=== PATIENT | male | born 1955 | race Caucasian/White ===

== ENCOUNTER → 2018-10-07 12:48 | Oncology outpatient (ONC) | payer OTHER, SELFPAY ==
[2018-10-07 13:09] VITALS: BP 140/80; PULSE 69; RESP 16; TEMP 36.9; O2SAT 95
--- NOTE | 2018-10-07 13:30 | ONC.PN ---
PN -Subjective Interval history: Diagnosis: Monoclonal B-cell lymphocytosis Previous treatment: None Interval history: Patient is a 63-year-old man who returns today for follow-up. He was noted to have an elevated white count at the time of an evaluation for coronary artery disease. He had a bone marrow biopsy done that showed a monoclonal B-cell population consistent with CLL. He had a CT scan done that showed some mild adenopathy. He was diagnosed with probable CLL. He has been followed expectantly since then. In 2016. His white count was 8.1 hemoglobin 15.9 and platelets [id number]. His most recent CBC from September 19 showed a white count of 7.9 hemoglobin 15.7 and platelets of 169,000. Absolute lymphocyte count was 2.3. The patient has not noted any new adenopathy. He denies any new aches or pains. No fevers chills or sweats. Appetite and energy level have been stable. He denies any other changes in his health. He is currently on no prescription medications but does take several supplements and vitamins. Home Medications and Allergies Home Medications Medication Instructions Recorded Confirmed Type aspirin 81 mg PO DAILY 10/07/18 10/07/18 History coenzyme Q10 [Co Q-10] 100 mg PO DAILY 10/07/18 10/07/18 History loratadine 10 mg PO DAILY 10/07/18 10/07/18 History multivitamin 1 cap PO DAILY 10/07/18 10/07/18 History omega-3 fatty acids 1,000 mg PO DAILY 10/07/18 10/07/18 History vitamin K2 100 mcg PO DAILY 10/07/18 10/07/18 History Exam - Constitutional positive no acute distress, positive average body habitus - Routine HEENT Exam Head: Present: normocephalic, atraumatic Eye: Present: EOMI, PERRL. Absent: conjunctival icterus, scleral injection ENT: Present: mucous membranes moist, oropharynx clear - Routine Neck Exam Present: supple. Absent: lymphadenopathy, thyromegaly - Routine Chest/Breast/Axilla Exam Axillae: Absent: lymphadenopathy - Routine Respiratory Exam Present: Clear to auscultation bilaterally. Absent: rales, wheezes - Routine Cardiovascular Exam Present: RRR, S1, S2. Absent: murmur - Routine Abdominal Exam Present: soft, normoactive bowel sounds. Absent: tenderness, organomegaly, mass - Routine Extremities Exam Absent: cyanosis, clubbing, edema - Routine Skin Exam Present: intact. Absent: petechiae, rash - Routine Neurological Exam Present: alert, oriented X3 - Routine Psychiatric Exam Present: normal affect, normal thought process Results - Imaging Additional studies: Procedures Endoscopic polypectomy of large intestine (06/01/15) Assessment and Plan (1) Monoclonal B-cell lymphocytosis of undetermined significance Status: Acute 63-year-old man with a history of a mild elevation in his lymphocyte count. Flow cytometry has shown a monoclonal B-cell population but he has no evidence of progression. There are no symptoms related to this. He is not require any therapy. He should be monitored with a CBC annually. He prefers to do this with his primary physician and I think that is reasonable. I have not scheduled a follow-up appointment for him but would be happy to see him again in the future should his counts change or should he develop any new symptoms.
== END ==
LOC: ONC 12:52
DX: D72.820 Lymphocytosis (symptomatic) (principal)
CPT/HCPCS: 99214

== ENCOUNTER 2019-08-08 09:10 | Emergency (ER) | payer OTHER, SELFPAY ==
[2019-08-08 09:10] VITALS: BP 165/89; PULSE 55; RESP 16; TEMP 36.2; O2SAT 100
--- NOTE | 2019-08-08 09:29 | DI.CT.S_ITS ---
PROCEDURE: CT HEAD/BRAIN WO CON INDICATIONS: dizzy nausea TECHNIQUE: Noncontrast 4.5 mm thick angled axial sections acquired from the foramen magnum to the vertex, with coronal and sagittal reformats. For radiation dose reduction, the following was used: automated exposure control, adjustment of mA and/or kV according to patient size. COMPARISON: [facility], CR, XR CHEST 1V, 08/08/2019, 9:27. FINDINGS: Image quality: Excellent. CSF spaces: Basal cisterns are patent. No extra-axial fluid collections. Asymmetry is noted of the ventricles, which is attributed to developmental asymmetry. Brain: No intracranial bleeds or masses. There is cerebral volume loss for age, with resultant ventricular and sulcal prominence. There are periventricular and deep white matter chronic small vessel ischemic changes. There is intracranial internal carotid artery atherosclerosis. Skull and face: Calvarium and visualized facial bones appear intact, without suspicious lesions. Sinuses: Visualized sinuses and mastoids are clear. IMPRESSION: No acute intracranial process is seen. Dictated by: Raghu Paez M.D. on 08/08/2019 at 9:23 Approved by: Raghu Paez M.D. on 08/08/2019 at 9:24
--- NOTE | 2019-08-08 09:31 | ED_ITS ---
HPI - Dizziness General Chief Complaint: Dizziness Stated Complaint: dizzy and throwing up Time Seen by Provider: 08/08/19 09:17 Source: patient Mode of arrival: Ambulatory Limitations: no limitations History of Present Illness HPI Narrative: Patient is a 64-year-old male with history of coronary artery disease and vertigo who presents with dizziness and nausea. He states that he got up to do ti chi, he also was going to walk the dog. He walked down the end of the driveway got extremely dizzy lightheaded and nauseous. Likely for his walking stick he did not fall down he made it back to his who thought he may be having heart attack and gave him nitroglycerin. He states that the dizziness has resolved however he continues to feel extremely nauseous. He states that he has diffuse fatigue all over his body is but no pain. He denies any chest pain shortness of breath heart palpitations or focal deficits. He has no blackening of vision or double vision. MD complaint: dizziness Timing: sudden onset Relieving factors: nothing Exacerbating factors: nothing Related Data Home Medications Medication Instructions Recorded Confirmed aspirin 81 mg PO DAILY 10/07/18 10/07/18 coenzyme Q10 [Co Q-10] 100 mg PO DAILY 10/07/18 10/07/18 loratadine 10 mg PO DAILY 10/07/18 10/07/18 multivitamin 1 cap PO DAILY 10/07/18 10/07/18 omega-3 fatty acids 1,000 mg PO DAILY 10/07/18 10/07/18 vitamin K2 100 mcg PO DAILY 10/07/18 10/07/18 Allergies Allergy/AdvReac Type Severity Reaction Status Date / Time No Known Drug Allergies Allergy Verified 08/08/19 09:30 Review of Systems Review of Systems ROS Unobtainable: All systems reviewed & are unremarkable except as noted in HPI and below Constitutional Constitutional: Denies chills, Denies fever(s), Denies lethargy and Denies weakness Eyes Eyes: Denies change in vision, Denies eye discharge, Denies irritation and Denies loss of vision ENT Ears, Nose, Mouth, and Throat: Denies change in voice, Denies neck pain and Denies sore throat Cardiovascular Cardiovascular: Reports as per HPI, Denies chest pain, Reports lightheadedness, Denies dyspnea and Denies dyspnea on exertion Respiratory Respiratory: Denies cough, Denies dyspnea, Denies dyspnea on exertion and Denies wheezing Gastrointestinal Gastrointestinal: Reports nausea and Reports vomiting (x1) Genitourinary Genitourinary: Denies hematuria, Denies flank pain, Denies urinary incontinence and Denies urinary urgency Musculoskeletal Musculoskeletal: Denies neck pain Integumentary/Breasts Skin/Breast: Denies pruritus, Denies erythema, Denies rash and Denies wounds Neurologic Neurologic: Denies loss of vision and Denies weakness Allergic/Immunologic Allergic/Immunologic: Denies wheezing Patient History Medical History Coronary artery disease (Acute) Monoclonal B-cell lymphocytosis of undetermined significance (Acute) Vertigo (Acute) Social History Smoking Status: Never smoker alcohol intake frequency: a few times a week Alcohol type: wine Substance Use Type: does not use Exam Initial Vital Signs Initial Vital Signs: Vital Signs Temperature 97.1 F L 08/08/19 09:10 Pulse Rate 55 L 08/08/19 09:10 Respiratory Rate 16 08/08/19 09:10 Blood Pressure 165/89 H 08/08/19 09:10 Pulse Oximetry 100 08/08/19 09:10 GENERAL: Middle-aged male appears unwell HEENT: Head atraumatic,EOMI, pupils reactive, face symmetric, CARDIOVASCULAR: Regular rate and rhythm without murmurs, rubs or gallops. RESPIRATORY: Breath sounds equal bilaterally, no wheezes rales or rhonchi. ABDOMEN: Soft, nontender. Normoactive bowel sounds all 4 quadrants. No guarding or rebound. EXTREMITIES: Normal range of motion, no clubbing or edema. Neurovascularly intact NEUROLOGICAL: Alert and oriented x4.Normal gait and speech. Cranial nerves II through XII grossly intact. Good [id number], good [id number], strength equal bilaterally, no dysarthria or aphasia, sensation in tact to soft touch bilaterally, no visual changes, no facial droop SKIN: Warm, dry, no laceration, no petechiae, no rashes or lesions. Scores NIH Stroke Scale Level of Conciousness: Alert, keenly responsive Ask month/age: Answers both questions correctly. Open/close eyes, close hand: Performs both tasks correctly Best gaze horizontal: Normal Visual rodriguez: No visual loss Facial palsy: Normal symetrical movement Left arm drift: No drift for full 10 sec Right arm drift: No drift for full 10 sec Left leg drift: No drift for full 10 sec Right leg drift: No drift for full 10 sec Limb ataxia: Absent Sensory on face/arms/legs: Normal, no sensory loss Best language: No aphasia, normal Dysarthria: Normal Extinction or inattention: No abnormality Total NIH Stroke scale score: 0 Course Orders Ordered: ED Orders 08/08/19 09:22 Complete Blood Count AUTO DIFF Stat Comprehensive Metabolic Panel Stat Lipase Stat Troponin & CK Cardiac Panel Stat 08/08/19 09:29 CT head/brain wo con Stat XR chest 1V Stat EKG-12 Lead Stat Discontinued Medications Sodium Chloride (Normal Saline 0.9%) 1,000 mls @ 1,000 mls/hr IV CONT DESTINEY Last Infusion: 08/08/19 09:39 Dose: 0 mls/hr Documented by: Admin: 08/08/19 09:35 Dose: 1,000 mls/hr Documented by: SHAILESH Ondansetron HCl (Zofran) 4 mg IV NOW ONE Stop: 08/08/19 09:30 Last Admin: 08/08/19 09:35 Dose: 4 mg Documented by: SHAILESH Ondansetron HCl (Zofran) 4 mg IV NOW ONE Stop: 08/08/19 10:14 Last Admin: 08/08/19 10:16 Dose: 4 mg Documented by: SHAILESH Pantoprazole Sodium (Protonix) 40 mg IV NOW ONE Stop: 08/08/19 10:14 Last Admin: 08/08/19 10:17 Dose: 40 mg Documented by: SHAILESH Vital Signs Vital signs: Vital Signs - 8 hr 08/08/19 09:10 08/08/19 09:49 08/08/19 09:57 Temperature 97.1 F L Pulse Rate 55 L 46 L 41 L Respiratory Rate 16 13 Blood Pressure 165/89 H Blood Pressure [Right Arm] 150/77 H 150/77 H Pulse Oximetry 100 98 08/08/19 10:11 08/08/19 11:06 Temperature Pulse Rate 44 L 50 L Respiratory Rate 10 L 11 L Blood Pressure Blood Pressure [Right Arm] 143/74 H 142/77 H Pulse Oximetry 100 97 MDM - Dizziness Lab Data Attestation: I reviewed the patient's lab results. Result diagrams: 08/08/19 09:22 08/08/19 09:22 Labs: Lab Results 08/08/19 08/08/19 Range/Units 09:22 09:22 WBC 8.4 (4.5-11.0) X10^3/uL RBC 5.35 (4.5-5.9) X10^6/uL Hgb 16.8 (13.5-17.5) g/dL Hct 50.0 (41-53) % MCV 93.5 (80-100) fL MCH 31.5 (26-34) PG MCHC 33.7 (30-36) % RDW 12.8 (11.6-14.8) % Plt Count 166 (150-400) X10^3/uL Neut % (Auto) 54.6 (50-75) % Lymph % (Auto) 33.6 (25-40) % [place] % (Auto) 8.2 (3-14) % Eos % (Auto) 3.2 (2-4) % Baso % (Auto) 0.4 (0-2) % Neut # (Auto) 4600 (5481-2609) /uL Lymph # (Auto) 2800 (6638-4321) /uL [place] # (Auto) 700 (0-900) /uL Eos # (Auto) 300 (0-450) /uL Baso # (Auto) 0 (0-100) /uL Sodium 141 (137-145) mmol/L Potassium 4.2 (3.4-5.1) mmol/L Chloride 105 (98-107) mmol/L Carbon Dioxide 28 (22-32) mmol/L BUN 28 H (9-20) mg/dL Creatinine 1.00 (0.66-1.25) mg/dL Estimated GFR > 60.0 (>60) mL/min BUN/Creatinine Ratio 28.0 H (6-22) Glucose 125 H (80-110) mg/dL Calcium 9.5 (8.4-10.2) mg/dL Total Bilirubin 0.8 (0.2-1.3) mg/dL AST 39 (17-59) IU/L ALT 23 (<50) IU/L Alkaline Phosphatase 66 (38-126) U/L Total Creatine Kinase 69 (55-170) U/L CK-MB (CK-2) TNP CK-MB (CK-2) Rel Index TNP Troponin I < 0.012 (0.01-0.034) ng/mL Total Protein 7.1 (6.3-8.2) g/dL Albumin 4.6 (3.5-5.0) g/dL Globulin 2.5 (1.7-4.1) g/dL Albumin/Globulin Ratio 1.8 (1.0-2.8) Lipase 156 (23-300) U/L Point of Care Testing Glucose POC 107 Imaging Data Chest x-ray: Radiologist's impression: PROCEDURE: XR CHEST 1V INDICATIONS: nausea dizzy TECHNIQUE: One view of the chest was acquired. COMPARISON: [facility], CT, CT HEAD/BRAIN WO CON, 08/08/2019, 9:36. [facility], CR, CHEST 1 VIEW, 08/02/2015, 8:03. FINDINGS: Surgical changes and devices: None. Lungs and pleura: An incomplete inspiratory result is noted, causing a crowded appearance to the lung markings. No focal infiltrates are seen. No pneumothorax or significant pleural effusions are seen. Mediastinum: The cardiac contours are within normal limits. The aorta demonstrates calcification and tortuosity. Bones and chest wall: Age-appropriate bony degenerative changes are seen. No suspicious bony lesions. Remote right rib fractures are seen. Overlying soft tissues appear unremarkable. IMPRESSION: Limited portable chest examination, without a significant cardiopulmonary abnormality identified. Remote right rib fractures. Dictated by: Raghu Paez M.D. on 08/08/2019 at 9:21 ECG Data Attestation: I personally reviewed and interpreted this ECG as follows: Prior ECG tracings: available for review Interpretation: Normal sinus rhythm rate 51 p.r. interval 167 QRS [address] changes or T-wave inversions MDM Narrative Medical decision making narrative: Patient has no focal deficits. He denies any dizziness in the emergency department just weakness and nausea. After 2 doses of Zofran and Protonix he is overall feeling much better and would like to go home. Head CT blood work an EKG are overall reassuring. Discharge Plan Departure Patient Disposition: Home Clinical Impression: Vertigo Discharge Date/Time: 08/08/19 11:27 Instructions: DI for Vertigo Activity Restrictions/Additional Instructions: *You have been diagnosed with vertigo *What to do: You likely had an episode of vertigo today causing your dizziness lightheadedness and nausea. Head CT blood work overall reassuring. Recommend increasing her fluid intake today *Continue to take medications as directed *Follow up with your primary care provider in 2-3 days *Return to ER if you should have worsening dizziness, weakness, difficulty speaking or any new, worsening or concerning symptoms Prescriptions: No Action omega-3 fatty acids 1,000 mg Capsule 1,000 mg PO DAILY RF: 0 aspirin 81 mg Tablet,Chewable 81 mg PO DAILY RF: 0 multivitamin Capsule 1 cap PO DAILY RF: 0 coenzyme Q10 [Co Q-10] 100 mg Capsule 100 mg PO DAILY RF: 0 loratadine 10 mg Capsule 10 mg PO DAILY RF: 0 vitamin K2 40 mcg Tablet 100 mcg PO DAILY RF: 0 Referrals: [facility] [Provider Group] Alexis Rodriguez MD [Primary Care Provider] -
[2019-08-08] MEDS: SODIUM CHLORIDE 0.9% 1,000 ML 1000 ML IV (09:35)
[2019-08-08] MEDS: ONDANSETRON 4 MG/2 ML INJ IV ×2 (09:35→10:16)
[2019-08-08 09:36] LABS: Add Manual Diff / Slide Review NO; Basophils Absolute Auto 0 /uL (0-100); Basophils Percent Auto 0.4 % (0-2); Eosinophils Absolute Auto 300 /uL (0-450); Eosinophils Percent Auto 3.2 % (2-4); Hemoglobin 16.8 g/dL (13.5-17.5); Lymphocytes Absolute Auto 2800 /uL (1100-4500); Lymphocytes Percent Auto 33.6 % (25-40); Mean Corpuscular HGB Conc 33.7 % (30-36); Mean Corpuscular Hemoglobin 31.5 PG (26-34); Mean Corpuscular Volume 93.5 fL (80-100); Monocytes Absolute Auto 700 /uL (0-900); Monocytes Percent Auto 8.2 % (3-14); Neutrophils Absolute Auto 4600 /uL (1500-7000); Neutrophils Percent Auto 54.6 % (50-75); Platelet Count 166 X10^3/uL (150-400); Red Blood Cell Count 5.35 X10^6/uL (4.5-5.9); Red Cell Distribution Width 12.8 % (11.6-14.8); White Blood Cell Count 8.4 X10^3/uL (4.5-11.0)
--- NOTE | 2019-08-08 09:39 | PC.NURSE ---
fluids paused at request of csr technician for imaging
[2019-08-08 09:48] LABS: Alanine Aminotransferase 23 IU/L (<50); Albumin 4.6 g/dL (3.5-5.0); Albumin Globulin Ratio 1.8 (1.0-2.8); Alkaline Phosphatase 66 U/L (38-126); Aspartate Aminotransferase 39 IU/L (17-59); Bilirubin Total 0.8 mg/dL (0.2-1.3); Blood Urea Nitrogen 28 mg/dL (9-20); Calcium 9.5 mg/dL (8.4-10.2); Carbon Dioxide 28 mmol/L (22-32); Chloride 105 mmol/L (98-107); Creatine Kinase 69 U/L (55-170); Estimated Glomerular Filt Rate > 60.0 mL/min (>60); Globulin 2.5 g/dL (1.7-4.1); Glucose 125 mg/dL (80-110); HEMOLYSIS 18 (0-50); Lipase 156 U/L (23-300); Potassium 4.2 mmol/L (3.4-5.1); Sodium 141 mmol/L (137-145); Total Protein 7.1 g/dL (6.3-8.2)
[2019-08-08 09:49] VITALS: BP 150/77; PULSE 46; RESP 13; O2SAT 98
[2019-08-08 09:57] VITALS: BP 150/77; PULSE 41
--- NOTE | 2019-08-08 09:57 | PC.NURSE ---
Dr Moran aware of pt's heart rate dipping to 41, pt states that 50 is his usual lower end HR
[2019-08-08 10:00] LABS: Troponin I < 0.012 ng/mL (0.01-0.034)
[2019-08-08 10:11] VITALS: BP 143/74; PULSE 44; RESP 10; O2SAT 100
--- NOTE | 2019-08-08 10:12 | PC.NURSE ---
Dr Moran aware of pt's HR 44 at this time, pt's nausea starting to increase again
[2019-08-08] MEDS: PANTOPRAZOLE 40 MG VIAL IV (10:17)
[2019-08-08 11:06] VITALS: BP 142/77; PULSE 50; RESP 11; O2SAT 97
== END 2019-08-08 11:27 | disposition home or self-care (01) ==
PROVIDERS: Emergency Provider Emergency Medicine
DX: R42 Dizziness and giddiness (principal); I25.10 Atherosclerotic heart disease of native coronary artery without angina pectoris
CPT/HCPCS: 36415; 70450; 71045; 80053; 82550; 82962; 83690; 84484; 85025; 93005; 93041; 96374; 96375; 96376; 99283; 99285; C9113; J2405

== ENCOUNTER 2019-09-08 12:39 | Outpatient (RCR) | payer OTHER, SELFPAY ==
--- NOTE | 2019-09-08 15:07 | PT-OP ANOTE ---
Pt emails PT to ask about his leg problem and about possible PAD and need for Lasix. PT emails back and writes, good thought and good question for your doctor. PT recommends that pt should follow-up with doctor.
--- NOTE | 2019-09-08 17:48 | PT.OIE ---
Current Diagnoses Dizziness and giddiness (09/08/19) Past Medical History (Last Reviewed 08/08/19 @ 09:35 by Charissa Moran DO) Coronary artery disease (Acute) Monoclonal B-cell lymphocytosis of undetermined significance (Acute) Vertigo (Acute) Visit Care Team Role Provider Type Shonda Forrester DO Attending Provider Non-Staff Primary Care Provider Specialty: Medical Address: [address] [place] [address], [facility] Email: Physical Therapy Initial Evaluation PT-OP-A Visit Information Start: 09/08/19 11:37 Freq: Status: Active Protocol: Document 09/08/19 12:45 MB (Rec: 09/08/19 13:27 MB [id number]) Out-Patient Physical Therapy Visit Information Visit Information Visit Type Initial Evaluation Visit Note Pt has Visit Start Time 12:45 Visit Stop Time 13:25 Total Visit Minutes 40 Visit Number 1 Evaluation Information Evaluation Date 09/08/19 PT-OP-B Current Condition Start: 09/08/19 11:37 Freq: Status: Active Protocol: Document 09/08/19 12:45 MB (Rec: 09/08/19 13:27 MB [id number]) Current Condition History of Current Condition Onset Date 08/08/19 Current Complaints See subjective History of Current Condition Pt presented with dizziness and light-headedness when walking down the driveway. He went to ED and CT head was negative. PMH includes B-cell lymphomcytosis (pt states that he does not know what this is and that he does not have it but chart has it included) and CAD. 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 His blood count altered later in life and he was deemed CA-free once moving here. He only had the one episode of dizziness but has a history of flight motion sickness. He was in the [employer] for thirty years. His balance is fine. He denies falls. Pt states that he inherited his inner ear issues from his father. He states that he has decreased inner ear fluid. He rides his outside bike everyday and plays racquet ball. PT-OP-C Subjective Start: 09/08/19 11:37 Freq: Status: Active Protocol: Document 09/08/19 12:45 MB (Rec: 09/08/19 13:27 MB [id number]) OP-PT Subjective Patient Comments Patient Comments Pt reports trouble with his leg strength and rapid leg mobility with racquet ball. He denies further dizziness. He might have degnerative changes in his legs. He does not want PT at this time for agility, balance or strengthening. Patient Questionnaires ABC- Activity Specific Balance Confidence Scale ABC Functional Impairment 0% Impaired (Score 100) Dizziness Handicap Inventory DHI Functional Impairment 0% Impaired (Score 0) OP-PT Pain Assessment Comments Pain Comments Pt denies pain PT-OP-J Posture/Palpation/Skin Start: 09/08/19 11:37 Freq: Status: Active Protocol: Document 09/08/19 12:45 MB (Rec: 09/08/19 17:47 MB [id number]) Posture Evaluation Comments Posture Comments Forward head, rounded shoulders with head 6 forward and tragus 3 forward of AC joint, B hip and knee flexion, flexion at hips as well, knee and ankle anomalies, possible degnerative in nature. PT-OP-K Range of Motion Start: 09/08/19 11:37 Freq: Status: Active Protocol: Document 09/08/19 12:45 MB (Rec: 09/08/19 17:47 MB [id number]) Cervical Spine Range of Motion Cervical Spine Active Testing Position Standing Flexion 40 Extension 30 Rotation Left 40 Rotation Right 40 Lateral Flexion Left 10 Lateral Flexion Right 10 Comments Pt must extend upper trunk to extend cervical spine PT-OP-M Strength Start: 09/08/19 11:37 Freq: Status: Active Protocol: Document 09/08/19 12:45 MB (Rec: 09/08/19 17:47 MB [id number]) Shoulder Strength Shoulder Manual Muscle Testing Right Flexion 5 Normal Comments All movement functional and WNLs Left Flexion 5 Normal Comments All movement functional and WNLs Elbow/Forearm Strength Elbow and Forearm Manual Muscle Testing Left Flexion (C6) 5 Normal Extension (C7) 5 Normal Comments All movement WNLs Right Flexion (C6) 5 Normal Extension (C7) 5 Normal Comments All movements WNLs Hip Strength Hip Manual Muscle Testing Left Flexion (L2) 3- Fair- Comments Sitting Right Flexion (L2) 4 Good Comments Sitting Knee Strength Knee Manual Muscle Testing Left Flexion (S2) 5 Normal Extension (L3) 5 Normal Comments Sitting Right Flexion (S2) 5 Normal Extension (L3) 5 Normal Comments Sitting Ankle/Foot Strength Ankle and Foot Manual Muscle Testing Left Dorsiflexion (L4) 5 Normal Right Dorsiflexion (L4) 5 Normal PT-OP-O Vestibular Start: 09/08/19 11:37 Freq: Status: Active Protocol: Document 09/08/19 12:45 MB (Rec: 09/08/19 17:47 MB [id number]) Vestibular Assessment Visual Testing Smooth Pursuits Horizontal Normal Smooth Pursuits Vertical Normal Saccades Horizontal Normal Gaze Evoked Nystagmus With Fixation Negative Gaze Evoked Nystagmus Without Fixation Negative Thrust Head Positive Left Convergence Test WNL Spontaneous Nystagmus Negative Positional Testing Supine to Sit Negative Sit to Supine Negative Vestibular Function Tests CTSIB Position 1 Normal mCTSIB Position 1 Normal mCTSIB Position 2 Normal mCTSIB Position 3 Normal mCTSIB Position 4 Normal Comments Vestibular Comments Pt's pupils do not restrict to pen light in the dark. He denies taking any medications Normal finger to nose B after checked twice. To begin he had mild dysmetria when touching target Pt denies: head and neck pain, history of whiplash or other injury, falls, change in hearing, tinnitus, visual changes. He does report doing sit-ups everyday. BP does drop with testing in LUE with BP & HR: supine 156/ 87, 55; standing 30 sec 145/91 , 66; standing 1' 138/89, 63 PT-OP-T Assessment and Plan Start: 09/08/19 11:37 Freq: Status: Active Protocol: Document 09/08/19 12:45 MB (Rec: 09/08/19 17:47 MB [id number]) Physical Therapy Assessment Evaluation Complexity Number of Personal Factors/Comorbidities 1-2 Number of Body Systems Impaired 1-2 Impairments Other Impairments Pt presents with postural changes and possible degenerative changes in his joints, LE weakness, pupils non-reactive to pen light and positive Head Thrust Assessment Summary Assessment Pt is a 64 y/o male presenting with one episode of dizziness that resolved last month. He presents with normal balance with mCTSIB and Functional Gait Assessment this date, though his overall gait pattern is slow and swaggered. He may present with degenerative changes in his joints. He reports concerns about his legs and agility with playing racquet ball. He presents with left greater than right hip weakness with MMT this date. His pupils do not react to pen light in darkened room, VOR head thrust is positive on the left and his finger to nose is mildly dysmetric. He also presents with postural changes. PT is concerned about the presentation of his pupils and finger to nose in a 64 y/o who denies medication use and reports ability to perform racquet ball several times a weak. Similarly, PT is concerned about leg weakness in a patient who reports biking outside on hills several times a week. Unsure if reports of exercise are accurate. PT would anticipate normal UE coordination and leg strength given pt's age and reported activity level. He reports concerns about his agility but he does not wish to have PT to work on it. Recommend follow-up with doctor if work-up needed for any underlying joint degeneration or central concerns. His BP does drop with moving from supine to stand but he is not light- headed. Physical Therapy Plan Frequency and Duration Duration of Treatment Assessment only Plan of Care Start Date 09/08/19 Plan of Care End Date 09/08/19 Discharge Physical Therapy Discharge Reasons Patient Request
--- NOTE | 2019-09-08 17:48 | PT.OPPOC ---
Physical, Occupational & Speech Therapy At [facility] Current Diagnoses Dizziness and giddiness (09/08/19) Visit Care Team Role Provider Type Shonda Forrester DO Attending Provider Non-Staff Primary Care Provider Specialty: Medical Address: [address] [place] [address], [id number] Email: Plan Of Care PT-OP-T Assessment and Plan Start: 09/08/19 11:37 Freq: Status: Active Protocol: Document 09/08/19 12:45 MB (Rec: 09/08/19 17:47 MB [id number]) Physical Therapy Assessment Evaluation Complexity Number of Personal Factors/Comorbidities 1-2 Number of Body Systems Impaired 1-2 Impairments Other Impairments Pt presents with postural changes and possible degenerative changes in his joints, LE weakness, pupils non-reactive to pen light and positive Head Thrust Assessment Summary Assessment Pt is a 64 y/o male presenting with one episode of dizziness that resolved last month. He presents with normal balance with mCTSIB and Functional Gait Assessment this date, though his overall gait pattern is slow and swaggered. He may present with degenerative changes in his joints. He reports concerns about his legs and agility with playing racquet ball. He presents with left greater than right hip weakness with MMT this date. His pupils do not react to pen light in darkened room, VOR head thrust is positive on the left and his finger to nose is mildly dysmetric. He also presents with postural changes. PT is concerned about the presentation of his pupils and finger to nose in a 64 y/o who denies medication use and reports ability to perform racquet ball several times a weak. Similarly, PT is concerned about leg weakness in a patient who reports biking outside on hills several times a week. Unsure if reports of exercise are accurate. PT would anticipate normal UE coordination and leg strength given pt's age and reported activity level. He reports concerns about his agility but he does not wish to have PT to work on it. Recommend follow-up with doctor if work-up needed for any underlying joint degeneration or central concerns. His BP does drop with moving from supine to stand but he is not light- headed. Physical Therapy Plan Frequency and Duration Duration of Treatment Assessment only Plan of Care Start Date 09/08/19 Plan of Care End Date 09/08/19 Discharge Physical Therapy Discharge Reasons Patient Request Plan of Care Dates Plan of Care Start Date 09/08/19 Plan of Care End Date 09/08/19 Electronically Signed by: Yokasta Zavaleta, PT 09/08/19 [id number] Please Sign and Return: I have reviewed this Plan of Care and certify that the skilled therapy services above are required to meet the patient?s needs. Physician Signature Date Printed Name and Credentials Clinical Instructor Signature Printed Name and Credentials
== END 2019-09-24 10:20 ==
LOC: PHYS 12:39
PROVIDERS: PCP Family Medicine; Visit Provider Family Medicine
DX: R42 Dizziness and giddiness (principal)
CPT/HCPCS: 97162

== ENCOUNTER → 2019-11-10 12:31 | Outpatient (CLI) | payer OTHER, SELFPAY ==
--- NOTE | 2019-11-10 | DI.MRI.S_ITS ---
PROCEDURE: MR HIP RT WO/W CON INDICATIONS: Pain in right hip TECHNIQUE: Noncontrast coronal T1 spin echo and STIR, sagittal T1 spin echo with fat saturation and STIR, axial T1 spin echo and T2 fast spin echo with fat saturation. After the administration of contrast, axial/sagittal/coronal T1 spin echo with fat saturation through the right hip. COMPARISON: [facility], CR, XR PELVIS WITH LATERAL HIP RIGHT, 09/17/2019, 9:12. FINDINGS: Image quality: Degraded by uncontrollable motion artifact, in particular on the post contrast-enhanced pulse sequences Bones: No definite abnormal intraosseous enhancement although limited by motion artifact. No discrete fracture line is seen. There is bilateral hip joint degeneration, right greater left. Scattered degenerative subchondral sclerosis and spurring. Lower lumbar facet arthropathy. The sacroiliac joints appear grossly intact. Subchondral marrow signal change present in the right femoral head presumably reactive to joint degeneration. Small right hip joint effusion is present. The labrum is not well-seen due to motion artifact however suspect anterosuperior labral fraying and degeneration, possibly chronic tear. There is adjacent acetabular sclerosis and spurring. Soft tissues: No soft tissue masses are visualized. The scanned muscles demonstrate normal overall bulk and internal signal. Subcutaneous tissues appear normal as well. No abnormal soft tissue enhancement. No definite pathologic lymphadenopathy. IMPRESSION: No discrete marrow signal abnormality or enhancement to suggest intraosseous mass. Motion degraded examination, in particular on the contrast-enhanced pulse sequences. Bilateral hip joint degeneration, right greater left. Poorly defined right anterosuperior labral fraying/degenerative tear, probably chronic. Trace right hip joint effusion. Dictated by: Gene Morrison M.D. on 11/10/2019 at 13:34 Approved by: Gene Morrison M.D. on 11/10/2019 at 13:42
== END ==
PROVIDERS: PCP Family Medicine; Referring Provider Family Medicine; Visit Provider Orthopaedic Surgery
DX: M25.551 Pain in right hip (principal); M16.0 Bilateral primary osteoarthritis of hip
CPT/HCPCS: 73723; A9579

== ENCOUNTER 2021-02-28 02:58 | Emergency (ER) | payer MEDICARE, OTHER, SELFPAY ==
[2021-02-28 03:20] VITALS: BP 184/91; PULSE 56; RESP 16; TEMP 36.6; O2SAT 97; BMI 27.9
--- NOTE | 2021-02-28 03:35 | DI.CT.S_ITS ---
PROCEDURE: CT KIDNEY URETER BLADDER (KUB) INDICATIONS: severe left flank pain TECHNIQUE: Axial sections were acquired from the lung bases to the pubic symphysis. Coronal and sagittal reformats were performed. For radiation dose reduction, the following was used: automated exposure control, adjustment of mA and/or kV according to patient size. COMPARISON:[facility], CR, XR KUB, 02/28/2021, 5:56. FINDINGS: Image quality: Excellent. Lung bases: Bibasilar atelectasis. Small hiatal hernia. Heart: Heart size is normal. Severe coronary artery calcification. URINARY: Left Kidney: There is a 11 x 8 mm stone at the left ureteropelvic junction. There is moderate left hydronephrosis and perinephric stranding. A small perinephric fluid is present. No other renal calculi. Left Ureter: No hydroureter. Right Kidney: No stones or hydronephrosis. Right Ureter: No hydroureter. Bladder: Normal wall thickness. No stones. Prostate is prominent in size. ABDOMEN: Liver: Unremarkable. Gallbladder: Unremarkable. Biliary ducts: Unremarkable. Pancreas: Unremarkable. Spleen: Unremarkable. Adrenal Glands: Unremarkable. Stomach and Bowel: Stomach, small bowel loops, and colon are unremarkable. Moderate amount of stool in colon. Peritoneum: No abnormal intraperitoneal fluid. No free air. Ventral Wall: There is a tiny fat containing umbilical hernia. Abdominal Nodes: No enlarged retroperitoneal or mesenteric lymph nodes. Vessels: Aorta and inferior vena cava are normal in size. Moderate atherosclerotic calcification. PELVIS: Pelvic Organs: Unremarkable. Pelvic Nodes: Unremarkable. Miscellaneous: No inguinal hernias are seen. Bones: Unremarkable. Mild degenerative changes in lumbar spine. IMPRESSION: 1. There is a 11 x 8 mm obstructive stone at the left UPJ, causing moderate hydronephrosis with perinephric stranding and small perinephric fluid. No significant discrepancy with the shift stacker radiology preliminary report. Dictated by: Edna Bryant M.D. on 02/28/2021 at 7:52 Approved by: Edna Bryant M.D. on 02/28/2021 at 7:58
--- NOTE | 2021-02-28 03:38 | ED.MALEGU ---
HPI - Male Genitourinary General Chief complaint: Urogenital-Male Stated complaint: acute pain left side/hip blood in urine yesterday Time Seen by Provider: 02/28/21 03:08 Source: patient and family Mode of arrival: Ambulatory Limitations: no limitations History of Present Illness HPI Narrative: 66-year-old male nonsmoker with history of coronary artery disease presents with his in the chief complaint of severe left flank pain over the course of the day. He states it seems to be there no matter what and he is largely unable to find a position of comfort. He denies any radiation of the pain and states that it is sharp, stabbing and intense. He denies any fever chills but has had nausea due to the pain. He denies any actual vomiting. He denies any recent injury or overuse. He does state that he passed some blood in his urine yesterday. He denies any history of kidney stones. MD Complaint: other Onset (ago): hour(s) Duration: constant Location: left flank Severity: moderate Quality: aching and burning Relieving factors: none Exacerbating factors: none Associated symptoms: Reports blood in urine Related Data Home Medications Medication Instructions Recorded Confirmed aspirin 81 mg PO DAILY 10/07/18 10/07/18 coenzyme Q10 [Co Q-10] 100 mg PO DAILY 10/07/18 10/07/18 loratadine 10 mg PO DAILY 10/07/18 10/07/18 multivitamin 1 cap PO DAILY 10/07/18 10/07/18 omega-3 fatty acids 1,000 mg PO DAILY 10/07/18 10/07/18 vitamin K2 100 mcg PO DAILY 10/07/18 10/07/18 Previous Rx's Medication Instructions Recorded hydrocodone-acetaminophen 1 tab PO Q4-6H PRN #20 tab 02/28/21 ketorolac 10 mg PO Q6H PRN #14 tab 02/28/21 ondansetron 4 mg PO TID-QID PRN #10 tab 02/28/21 tamsulosin [Flomax] 0.4 mg PO DAILY #30 cap 02/28/21 Allergies Allergy/AdvReac Type Severity Reaction Status Date / Time No Known Drug Allergies Allergy Verified 08/08/19 09:30 Review of Systems Constitutional Constitutional: Denies chills, Denies fatigue, Denies fever(s), Denies frequent falls, Denies lethargy and Denies weakness Eyes Eyes: Denies change in vision, Denies eye discharge, Denies irritation and Denies loss of vision ENT Ears, Nose, Mouth, and Throat: Denies change in voice, Denies dizziness, Denies neck pain, Denies sore throat and Denies throat swelling Cardiovascular Cardiovascular: Denies chest pain, Denies irregular heart rhythm, Denies lightheadedness, Denies palpitations, Denies dyspnea, Denies dyspnea on exertion and Denies orthopnea Respiratory Respiratory: Denies cough, Denies dyspnea, Denies dyspnea on exertion and Denies wheezing Gastrointestinal Gastrointestinal: Denies abdominal pain, Denies change in bowel habits, Denies diarrhea, Denies nausea and Denies vomiting Genitourinary Genitourinary: Reports hematuria Genitourinary: Reports hematuria Musculoskeletal Musculoskeletal: Denies neck pain and Denies numbness Integumentary/Breasts Skin/Breast: Denies pruritus, Denies erythema, Denies rash and Denies wounds Neurologic Neurologic: Denies behavioral changes, Denies confusion, Denies dizziness, Denies frequent falls, Denies loss of vision, Denies numbness and Denies weakness Psychiatric Psychiatric: Denies anxiety, Denies behavioral changes, Denies confusion, Denies depression, Denies homicidal ideation and Denies suicidal ideation Endocrine Endocrine: Denies fatigue, Denies flushing and Denies palpitations Hematologic/Lymphatic Hematologic/Lymphatic: Denies easy bruising Allergic/Immunologic Allergic/Immunologic: Denies urticaria, Denies throat swelling and Denies wheezing Patient History Medical History (Updated 02/28/21 @ 05:52 by Giovanny Uriostegui DO) Coronary artery disease Monoclonal B-cell lymphocytosis of undetermined significance Vertigo Social History Smoking Status: Never smoker Smoking Status: Never smoker alcohol intake frequency: a few times a week Alcohol type: wine Substance Use Type: does not use Exam Narrative Exam Narrative: GENERAL: [66] year old patient appears stated age. Well-developed patient, in obvious pain, rubbing his left flank HEAD: Atraumatic. Normocephalic. EYES: Pupils equal round and reactive. Extraocular motions intact. No scleral icterus. No injection or drainage. ENT: Nose without bleeding, purulent drainage. Throat without erythema, tonsillar hypertrophy or exudate. Airway patent. NECK: Trachea midline. Non tender CARDIOVASCULAR: Regular rate and rhythm without murmurs, gallops, or rubs. RESPIRATORY: Clear to auscultation. Breath sounds equal bilaterally. No wheezes, rales, or rhonchi. GASTROINTESTINAL: Abdomen soft, non-tender, nondistended. EXTREMITIES: No edema or joint tenderness. BACK: Nontender without deformity or crepitance. No flank tenderness. NEURO: AOx3. SKIN: No rash or erythema of visible areas Initial Vital Signs Initial Vital Signs: Vital Signs Temperature 97.8 F 02/28/21 03:20 Pulse Rate 56 L 02/28/21 03:20 Respiratory Rate 16 02/28/21 03:20 Blood Pressure 184/91 H 02/28/21 03:20 Pulse Oximetry 97 02/28/21 03:20 Course Orders Ordered: ED Orders 02/28/21 03:35 CT kidney ureter bladder (KUB) Stat 02/28/21 03:40 Complete Blood Count AUTO DIFF Stat Comprehensive Metabolic Panel Stat 02/28/21 04:55 Urinalysis and Microscopic Stat 02/28/21 05:52 XR KUB Stat Discontinued Medications Hydrocodone Bitart/Acetaminophen (Hydrocodone/Acet 5/325 Prepack) 1 bottle MISC SEEINSTR ONE Stop: 02/28/21 05:57 Hydromorphone HCl (Hydromorphone 0.5 Mg Inj) 0.5 mg IV NOW ONE Stop: 02/28/21 04:04 Last Admin: 02/28/21 04:05 Dose: 0.5 mg Documented by: FAROOQ Hydromorphone HCl (Hydromorphone 0.5 Mg Inj) 0.5 mg IV NOW ONE Stop: 02/28/21 05:03 Ketorolac Tromethamine (Ketorolac 30 Mg/Ml Vial) 15 mg IV NOW ONE Stop: 02/28/21 03:36 Last Admin: 02/28/21 03:55 Dose: 15 mg Documented by: FAROOQ Ondansetron HCl (Ondansetron 4 Mg/2 Ml Inj) 4 mg IV NOW ONE Stop: 02/28/21 03:58 Last Admin: 02/28/21 04:00 Dose: 4 mg Documented by: FAROOQ Ondansetron HCl (Ondansetron 4 Mg Odt Prepack) 1 bottle MISC SEEINSTR ONE Stop: 02/28/21 05:57 Tamsulosin HCl (Tamsulosin 0.4 Mg Capsule) 0.4 mg PO NOW ONE Stop: 02/28/21 04:04 Last Admin: 02/28/21 04:52 Dose: 0.4 mg Documented by: RAMOS Reevaluation(s) Reevaluation #1: Minimal change with Toradol Consultations Consultation #1: call to [facility]. Given that pain is well controlled, no bump in creatinine and no infection, he is candidate for DC with good return precautions. Vital Signs Vital signs: Vital Signs - 8 hr 02/28/21 03:20 Temperature 97.8 F Pulse Rate 56 L Respiratory Rate 16 Blood Pressure 184/91 H Pulse Oximetry 97 MDM - Male Genitourinary Lab Data Result diagrams: 02/28/21 03:40 02/28/21 03:40 Labs: Lab Results 02/28/21 02/28/21 02/28/21 Range/Units 03:40 03:40 04:55 WBC 12.1 H (4.5-11.0) X10^3/uL RBC 5.00 (4.5-5.9) X10^6/uL Hgb 15.5 (13.5-17.5) g/dL Hct 46.2 (41-53) % MCV 92.4 (80-100) fL MCH 31.0 (26-34) PG MCHC 33.6 (30-36) % RDW 12.6 (11.6-14.8) % Plt Count 161 (150-400) X10^3/uL Neut % (Auto) 74.1 (50-75) % Lymph % (Auto) 16.1 L (25-40) % [place] % (Auto) 6.5 (3-14) % Eos % (Auto) 3.0 (2-4) % Baso % (Auto) 0.3 (0-2) % Neut # (Auto) 9000 H (4297-5887) /uL Lymph # (Auto) 1900 (4461-1301) /uL [place] # (Auto) 800 (0-900) /uL Eos # (Auto) 400 (0-450) /uL Baso # (Auto) 0 (0-100) /uL Sodium 137 (137-145) mmol/L Potassium 4.4 (3.4-5.1) mmol/L Chloride 105 (98-107) mmol/L Carbon Dioxide 25 (22-32) mmol/L BUN 30 H (9-20) mg/dL Creatinine 1.20 (0.66-1.25) mg/dL Estimated GFR > 60.0 (>60) mL/min BUN/Creatinine Ratio 25.0 H (6-22) Glucose 115 H (80-110) mg/dL Calcium 9.5 (8.4-10.2) mg/dL Total Bilirubin 0.7 (0.2-1.3) mg/dL AST 31 (17-59) IU/L ALT 31 (<50) IU/L Alkaline Phosphatase 79 (38-126) U/L Total Protein 6.5 (6.3-8.2) g/dL Albumin 4.1 (3.5-5.0) g/dL Globulin 2.4 (1.7-4.1) g/dL Albumin/Globulin Ratio 1.7 (1.0-2.8) Urine Color Yellow Urine Appearance Clear Urine pH 5.0 (4.5-8.0) Ur Specific [place] 1.025 (1.000-1.035) Urine Protein Negative (Negative) Urine Glucose (UA) Negative (Negative) g/dL Urine Ketones Negative (NEGATIVE) Urine Occult Blood 3+ H (Negative) Urine Nitrate Negative (Negative) Urine Bilirubin Negative (NEGATIVE) Urine Urobilinogen 0.2 (0.2) E.U./dL Ur Leukocyte Esterase Negative (NEGATIVE) Imaging Data CT KUB: Radiologist's Impression: Severe left hydroureteronephrosis and perinephric inflammatory changes with an obstructing proximal ureteral calculus measuring 12 x 7 mm MDM Narrative Medical decision making narrative: Patient presents with significant left flank pain after an episode of hematuria, CT notes a large obstructing stone. Labs are reassuring and no evidence renal failure, urine shows no sign of infection. Pain is well controlled, no vomiting, return precautions given and questions answered to their apparent satisfaction Discharge Plan Departure Patient Disposition: Home Clinical Impression: Kidney stone on left side Instructions: DI for Kidney Stones Activity Restrictions/Additional Instructions: *You have been diagnosed with [large proximal left-sided kidney stone measuring 12 x 7 mm] *What to do: *Please continue to take your regular medications as directed. [ x] New medication prescriptions sent to your pharmacy: [[facility]] [ ] New medication written as a paper prescription [ ] No new medications given *Please follow up Urology, call today for an appointment. Let them know you were seen in the Emergency Department and that we ask that you be seen in follow up. We will electronically transmit a record of today's note if your PCP is in our system *If you do not have a primary care provider please contact the [facility] Resource line at [phone]. They will ask some questions about your medical history and help get you set up with a doctor in the community. *Return to Emergency Department if you should have any new, worsening or concerning symptoms, such as [fever greater than 101 F, shaking chills, worsening pain, persistent vomiting or other bothersome symptoms] Prescriptions: New hydrocodone-acetaminophen 5-325 mg tablet 1 tab PO Q4-6H PRN (Reason: pain) Qty: 20 RF: 0 ketorolac 10 mg tablet 10 mg PO Q6H PRN (Reason: pain) Qty: 14 RF: 0 tamsulosin [Flomax] 0.4 mg capsule 0.4 mg PO DAILY Qty: 30 RF: 0 ondansetron 4 mg tablet,disintegrating 4 mg PO TID-QID PRN (Reason: nausea and vomiting) Qty: 10 RF: 0 No Action omega-3 fatty acids 1,000 mg Capsule 1,000 mg PO DAILY RF: 0 aspirin 81 mg Tablet,Chewable 81 mg PO DAILY RF: 0 multivitamin Capsule 1 cap PO DAILY RF: 0 coenzyme Q10 [Co Q-10] 100 mg Capsule 100 mg PO DAILY RF: 0 loratadine 10 mg Capsule 10 mg PO DAILY RF: 0 vitamin K2 40 mcg Tablet 100 mcg PO DAILY RF: 0 Referrals: Low Moncada MD [Physician] - Shonda Forrester DO [Primary Care Provider] -
[2021-02-28 03:44] LABS: Add Manual Diff / Slide Review NO; Basophils Absolute Auto 0 /uL (0-100); Basophils Percent Auto 0.3 % (0-2); Eosinophils Absolute Auto 400 /uL (0-450); Hematocrit 46.2 % (41-53); Hemoglobin 15.5 g/dL (13.5-17.5); Lymphocytes Absolute Auto 1900 /uL (1100-4500); Lymphocytes Percent Auto 16.1 % (25-40); Mean Corpuscular HGB Conc 33.6 % (30-36); Mean Corpuscular Volume 92.4 fL (80-100); Monocytes Absolute Auto 800 /uL (0-900); Monocytes Percent Auto 6.5 % (3-14); Neutrophils Absolute Auto 9000 /uL (1500-7000); Neutrophils Percent Auto 74.1 % (50-75); Platelet Count 161 X10^3/uL (150-400); Red Cell Distribution Width 12.6 % (11.6-14.8); White Blood Cell Count 12.1 X10^3/uL (4.5-11.0)
[2021-02-28 03:50] LABS: Alanine Aminotransferase 31 IU/L (<50); Albumin 4.1 g/dL (3.5-5.0); Albumin Globulin Ratio 1.7 (1.0-2.8); Alkaline Phosphatase 79 U/L (38-126); Aspartate Aminotransferase 31 IU/L (17-59); Bilirubin Total 0.7 mg/dL (0.2-1.3); Blood Urea Nitrogen 30 mg/dL (9-20); Calcium 9.5 mg/dL (8.4-10.2); Carbon Dioxide 25 mmol/L (22-32); Chloride 105 mmol/L (98-107); Estimated Glomerular Filt Rate > 60.0 mL/min (>60); Globulin 2.4 g/dL (1.7-4.1); Glucose 115 mg/dL (80-110); HEMOLYSIS < 15 (0-50); Potassium 4.4 mmol/L (3.4-5.1); Sodium 137 mmol/L (137-145); Total Protein 6.5 g/dL (6.3-8.2)
[2021-02-28] MEDS: KETOROLAC 30 MG/ML VIAL 15 MG IV (03:55)
[2021-02-28] MEDS: ONDANSETRON 4 MG/2 ML INJ IV (04:00)
--- NOTE | 2021-02-28 04:03 | PC.NURSE ---
Pt reports increasing pain after toradol, Dr Uriostegui notified, order received for dilaudid.
[2021-02-28] MEDS: HYDROMORPHONE 0.5 MG INJ IV (04:05)
[2021-02-28] MEDS: TAMSULOSIN 0.4 MG CAPSULE PO (04:52)
[2021-02-28 05:06] LABS: Bacteria Urine None Seen; WBC Urine None Seen (0-5/HPF)
[2021-02-28 05:15] LABS: Appearance Urine UA CLEAR; Bilirubin Urine UA NEGATIVE (NEGATIVE); Color Urine UA YELLOW; Glucose Urine UA NEGATIVE (Negative); Ketones Urine UA NEGATIVE (NEGATIVE); Leukocyte Esterase Urine UA NEGATIVE (NEGATIVE); Nitrite Urine UA NEGATIVE (Negative); Occult Blood Urine UA 3+ (Negative); Protein Urine UA NEGATIVE (Negative); Specific Gravity Urine UA 1.025 (1.000-1.035); Urobilinogen Urine UA 0.2 E.U./dL (0.2)
--- NOTE | 2021-02-28 05:52 | DI.RAD.S_ITS ---
PROCEDURE: XR KUB INDICATIONS: staging, per urology TECHNIQUE: One view of the abdomen acquired. COMPARISON: [facility], CT, CT KIDNEY URETER BLADDER (KUB), 02/28/2021, 3:43. FINDINGS: Surgical changes and devices: None. Bowel: Bowel gas pattern is normal. Soft tissues: There is a 11 mm stone projecting to the area of the left UPJ. Visualized solid organ contours appear normal in size. Bones: No suspicious bony lesions. A large amount of stool in colon. IMPRESSION: A 11 mm left UPJ stone. Dictated by: dEna Bryant M.D. on 02/28/2021 at 9:00 Approved by: Edna Bryant M.D. on 02/28/2021 at 9:01
[2021-02-28] MEDS: HYDROCODONE/ACET 5/325 PREPACK 1 BOTTLE MISC (06:04)
[2021-02-28] MEDS: ONDANSETRON 4 MG ODT PREPACK 1 BOTTLE MISC (06:04)
[2021-02-28 06:09] VITALS: BP 153/70; PULSE 60; RESP 16; TEMP 36.9; O2SAT 96
[2021-02-28 06:24] LABS: Culture Indicated Urine Cult Not Indicated; RBC Urine 5-10/HPF (0-5/HPF)
== END 2021-02-28 06:10 | disposition home or self-care (01) ==
PROVIDERS: Emergency Provider Emergency Medicine; PCP Family Medicine
DX: N20.0 Calculus of kidney (principal); R11.0 Nausea; R31.9 Hematuria, unspecified
CPT/HCPCS: 36415; 74018; 74176; 80053; 81001; 85025; 96374; 96375; 99284; J1170; J1885; J2405

== ENCOUNTER → 2021-03-02 15:20 | Outpatient (CLI) | payer MEDICARE, OTHER, SELFPAY ==
[2021-03-02 15:58] LABS: COVID19 -Nasal RAPID Negative (Negative)
== END ==
PROVIDERS: PCP Family Medicine; Visit Provider Specialist
DX: Z20.822 Contact with and (suspected) exposure to COVID-19 (principal); N20.1 Calculus of ureter
CPT/HCPCS: 87635; 99214

== ENCOUNTER 2021-03-03 06:18 | Day surgery (SDC) | payer MEDICARE, OTHER, SELFPAY ==
[2021-03-03] VITALS (8 sets, daily range): BP systolic 117–162; BP diastolic 73–96; PULSE 53–66; RESP 14–16; TEMP 36.2–36.6; O2SAT 90–98; BMI 28.8
[2021-03-03] MEDS: LACTATED RINGERS 1,000 ML 42 ML IV (07:34)
--- NOTE | 2021-03-03 07:54 | PM.PREOP ---
Pre-operative Note Interval Note History & Physical reviewed/Exam performed by Physician: Yes Changes to H&P: No
--- NOTE | 2021-03-03 08:13 | SUR.OPER ---
Supine on ESWL bed, head on pillow, arms secured on padded gel pads, legs uncrossed.
--- NOTE | 2021-03-03 08:39 | SUR.OPER ---
2 MIN 37 SEC ESWL TIME
--- NOTE | 2021-03-03 08:48 | PM.OP.1 ---
Operative Date/Time/Diagnoses Date of procedure: 03/03/21 Time of procedure: 08:48 Pre-op diagnosis: 11 mm left ureteropelvic junction calculus Post-op diagnosis: same Procedure & Clinicians Procedure: 1. Left extra corporal shockwave lithotripsy Same procedure as scheduled: Yes Indications: 1. Obstructing 11 mm left ureteropelvic junction calculus. 2. Intractable left renal colic. Surgeon: Low Moncada Click Yes if Unassisted: Yes Anesthesia Type: General Operative Notes Findings: Index calculus at same location as preoperative imaging. Closure Type: not applicable Specimen(s): none sent Estimated Blood Loss (mL): 0 Blood products transfused: none Procedure in detail: The patient was positioned supine and the patient was provided general anesthesia. The above-described stone was then localized in the X, Y, and Z plane. Lithotripsy was then commenced at minimal power level for 200 shocks. A 2 minutes pause was then conducted. Lithotripsy was then resumed in the power level was gradually increased to maximum power level of 8. Stone was really localize numerous times throughout the case. Treatment effect and evidence of fragmentation was seen radiographically. Maximum power delivery was attained 2247 shocks. Treatment was then halted. The patient was then awakened transferred to [facility] and transferred to recovery in stable condition. Complications: none Post-operative Condition: stable Disposition: PACU Plan for aftercare: Discharge home
[2021-03-03] MEDS: FUROSEMIDE 20 MG/2 ML VIAL IV (08:56)
--- NOTE | 2021-03-03 09:20 | SUR.PHASEI ---
pt on R side per MD order, given 20 mg of lasix. Stated he had to urinate, taken to phase II as criteria met, to bathroom to urinate in urinal and strain. NUCLEAR POWERPLANT MECHANIC HELPER assist. Report to FABIEN Medley.
== END 2021-03-03 09:42 | disposition home or self-care (01) ==
PROVIDERS: PCP Internal Medicine; Referring Provider Specialist; Visit Provider Specialist
PROC: (CPT 50590; principal; 2021-03-03 07:45)
DX: N20.1 Calculus of ureter (principal); G47.33 Obstructive sleep apnea (adult) (pediatric); I25.10 Atherosclerotic heart disease of native coronary artery without angina pectoris
CPT/HCPCS: 52353; J1100; J1940; J2405; J2704; J3010

== ENCOUNTER → 2021-03-15 08:40 | Outpatient (CLI) | payer MEDICARE, OTHER, SELFPAY ==
[2021-03-23 20:11] LABS: Ca oxalate dihydrate 20 % (.); Ca oxalate monohydr 80 % (.); Size <1 mm (.)
== END ==
PROVIDERS: PCP Internal Medicine; Visit Provider Specialist
DX: N20.1 Calculus of ureter (principal)
CPT/HCPCS: 82365

== ENCOUNTER → 2021-03-15 08:50 | Outpatient (CLI) | payer MEDICARE, OTHER, SELFPAY ==
--- NOTE | 2021-03-15 08:51 | DI.RAD.S_ITS ---
PROCEDURE: XR KUB INDICATIONS: Kidney stones TECHNIQUE: One view of the abdomen acquired. COMPARISON: [facility], CT, CT KIDNEY URETER BLADDER (KUB), 02/28/2021, 3:43. [facility], CR, XR KUB, 02/28/2021, 5:56. FINDINGS: Surgical changes and devices: None. Bowel: Bowel gas pattern is normal. Soft tissues: Larger recently seen 1.1 cm left kidney stone appears to be broken into multiple fragments. Some of these fragments project in the region of the proximal right ureter at the medial aspect of the kidney. Small fragments projecting over the left kidney. No right-sided kidney stones seen. No suspicious abdominal calcifications. Visualized solid organ contours appear normal in size. Bones: No suspicious bony lesions. Bilateral hip DJD. IMPRESSION: Findings consistent with interval left lithotripsy. Multiple small left kidney stone fragments projecting medial to the left kidney likely in the proximal ureter and within the left kidney. Dictated by: Gregorio Florez M.D. on 03/15/2021 at 10:05 Approved by: Gregorio Florez M.D. on 03/15/2021 at 10:09
== END ==
PROVIDERS: PCP Internal Medicine; Referring Provider Specialist; Visit Provider Specialist
DX: N20.0 Calculus of kidney (principal); N20.1 Calculus of ureter; R30.0 Dysuria
CPT/HCPCS: 74018; 81002; 82365; 99215

== ENCOUNTER → 2021-03-23 14:11 | Outpatient (CLI) | payer MEDICARE, OTHER, SELFPAY ==
[2021-03-24 10:17] LABS: COVID19 -Nasal RAPID Negative (Negative)
== END ==
PROVIDERS: PCP Internal Medicine; Visit Provider Specialist
DX: Z20.822 Contact with and (suspected) exposure to COVID-19 (principal)
CPT/HCPCS: 87635

== ENCOUNTER 2021-03-27 09:32 | Day surgery (SDC) | payer MEDICARE, OTHER, SELFPAY ==
[2021-03-20 12:28] VITALS: BMI 27.9
[2021-03-27] VITALS (7 sets, daily range): BP systolic 123–152; BP diastolic 76–97; PULSE 53–101; RESP 14–25; TEMP 36.1–37.3; O2SAT 92–99; BMI 27.9
--- NOTE | 2021-03-27 | DI.RAD.S_ITS ---
PROCEDURE: XR ABDOMEN MIN 2V INDICATIONS: Left ureteral calculi TECHNIQUE: 3 intraoperative fluoroscopic views of the abdomen were acquired. COMPARISON: [facility], CT, CT KIDNEY URETER BLADDER (KUB), 02/28/2021, 3:43. FINDINGS: Intraoperative fluoroscopic images of the left abdomen were acquired demonstrating placement of a left-sided ureteral stent. Contrast opacifies a dilated left upper collecting system compatible with previously seen hydronephrosis of the left kidney. Ureteral stent appears to be adequately positioned. IMPRESSION: Intraoperative fluoroscopic support for placement of left-sided ureteral stent. Left hydronephrosis. Please see procedural note for further details. Dictated by: Walker Gregory M.D. on 03/27/2021 at 14:17 Approved by: Walker Gregory M.D. on 03/27/2021 at 15:00
--- NOTE | 2021-03-27 09:30 | PM.PREOP ---
Pre-operative Note Interval Note History & Physical reviewed/Exam performed by Physician: Yes Changes to H&P: No
[2021-03-27] MEDS: LACTATED RINGERS 1,000 ML 42 ML IV ×2 (10:00→11:50)
[2021-03-27] MEDS: ACETAMINOPHEN IV 1,000 MG/100 ML VIAL 400 MG IV (10:04)
[2021-03-27] MEDS: CEFAZOLIN 1 GM VIAL 2 GM IV (10:44)
--- NOTE | 2021-03-27 11:02 | SUR.OPER ---
Lithotomy on padded OR bed, head on pillow, arms secured on padded arm boards at <90 degrees abduction. Legs secured in padded yellow fins stirrups.
--- NOTE | 2021-03-27 11:08 | SUR.OPER ---
after chloroprep ,pt scrotum turned very red then pt washed off and re prepped with iodine
[2021-03-27] MEDS: IOPAMIDOL 15 ML VIAL INJ (11:23)
--- NOTE | 2021-03-27 12:06 | PM.OP.1 ---
Operative Date/Time/Diagnoses Date of procedure: 03/27/21 Time of procedure: 12:06 Pre-op diagnosis: Multiple left proximal ureteral calculi Post-op diagnosis: same Procedure & Clinicians Procedure: 1. Cystoscopy/left ureteroscopic laser lithotripsy. 2. Cystoscopy/ left ureteral stent placement (7 Lithuanian by 22-32 cm multilength). 3. Cystoscopy/left retrograde pyelogram. Same procedure as scheduled: Yes Indications: 1. Multiple left proximal ureteral calculi Surgeon: Low Moncada Click Yes if Unassisted: Yes Anesthesia Type: General Operative Notes Findings: 1. Urethra-normal caliber without annular stricture or lesion. 2. External sphincter-coapted with normal overlying urothelium. 3. Prostate-4 cm length with moderate lateral lobe hyperplasia. 4. Bladder-1+ trabeculation. Normal ureteral orifices bilaterally. Small amount of blood seen at the os of the left. Closure Type: not applicable Specimen(s): none sent Applied: other (Seven Lithuanian by 22-32 cm multilink stent) Estimated Blood Loss (mL): 1 Blood products transfused: none Procedure in detail: The patient was positioned in supine and was administered general anesthesia. He was then repositioned semi lithotomy and the lower abdomen, genitalia, and groin were then prepped and draped in sterile fashion. A 22 Lithuanian panendoscope was then passed lower urinary tract with the findings as described above. A 0.35 hybrid guidewire was then selected and advanced into the left collecting system under direct and fluoroscopic guidance. The panendoscope was backloaded off the wire and now a dual lumen ureteral access sheath was advanced over the wire but could not be successfully advanced more proximally than the iliac vasculature. Therefore the double-lumen ureteral access sheath was backloaded off the wire. The wire was then backloaded into the panendoscope. Over this a 12 Lithuanian by 6 cm balloon dilating catheter was advanced and positioned across the left ureterovesical junction. The balloon was then inflated to 18 atmospheres and held in position for 5 minutes. The balloon dilating catheter was backloaded off the wire and the panendoscope was backed off the wire as well. The dual lumen access sheath was then reintroduced over the wire and advanced proximally under direct fluoroscopic guidance successfully. A 2nd accessory wire was then advanced through the accessory lumen. The dual lumen access sheath was then backloaded off both wires. One wire was secured to the operative drape. Over the other wire the flexible ureteral scope was advanced under direct and fluoroscopic guidance to the level of the most distal stone in the left proximal ureter. Next, all operating room personnel and staff for fitted with laser safety eyewear. A 200 micron laser was selected and each of the calculi were addressed in succession and fragmented into tiny fragments and powder. The flexor ureteral scope was then advanced of the left intrarenal collecting system. A retrograde pyelogram was then performed in careful inspection of the calices was undertaken without finding of a significant size stone fragment. The flexible ureteral scope was then carefully withdrawn from the ureter with post hydrostatic and mechanical agitation help clear the fragments. On a couple of occasions a more sizable fragment was encountered in the were lasered into tiny fragments as the flexors scope was being removed. Now the panendoscope was passed over the guidewire left in place to begin the case. Over this a 7 Lithuanian by 22-32 cm multi-length ureteral stent was selected advanced over the wire under direct and fluoroscopic guidance. A RETRIEVAL LINE WAS LEFT ATTACHED. The bladder was then drained completely and all instrumentation was then removed. The patient was then repositioned in supine, was awakened, and was transferred to [facility] a stable condition. Complications: none Post-operative Condition: stable Disposition: PACU Plan for aftercare: Discharge home
--- NOTE | 2021-03-27 12:37 | SUR.PHASEI ---
1237 Hand-off report to Jimmy Arredondo RN
--- NOTE | 2021-03-27 12:52 | SUR.PHASEII ---
Pt noted to have irregular HR, rate controlled, Dr. Asher notified
--- NOTE | 2021-03-27 13:13 | SUR.PHASEII ---
EKG ordered and completed, shown to Dr. Asher, Dr. Moncada called, verified pt to strain urine and call off if stone obtained. Possible stone passed prior to d/c, specimen sent to lab.
--- NOTE | 2021-03-27 14:30 | SUR.PHASEII ---
Late note: Copy of EKG shown and given to pt by Dr. Asher. Dr. Asher explained/discussed pt's HR and instructed him to f/u with his PCP.
[2021-04-05 15:48] LABS: Size <1 mm; Stone Analysis Source NOT PROVIDED
== END 2021-03-27 13:41 | disposition home or self-care (01) ==
PROVIDERS: PCP Internal Medicine; Referring Provider Specialist; Visit Provider Specialist
PROC: (CPT 52356; principal; 2021-03-27 10:45)
DX: N20.1 Calculus of ureter (principal); N40.0 Benign prostatic hyperplasia without lower urinary tract symptoms; I25.10 Atherosclerotic heart disease of native coronary artery without angina pectoris; G47.33 Obstructive sleep apnea (adult) (pediatric); R42 Dizziness and giddiness; Z79.82 Long term (current) use of aspirin
CPT/HCPCS: 52356; 74019; 76000; 82365; 82962; 87635; 93005; 93010; J0131; J0690; J1100; J2250; J2405; J2704; J3010

== ENCOUNTER → 2021-04-04 11:16 | Outpatient (CLI) | payer MEDICARE, OTHER, SELFPAY ==
--- NOTE | 2021-04-04 11:18 | DI.RAD.S_ITS ---
PROCEDURE: XR KUB INDICATIONS: Renal calculus TECHNIQUE: One view of the abdomen acquired. COMPARISON: [facility], CT, CT KIDNEY URETER BLADDER (KUB), 02/28/2021, 3:43. [facility], CR, XR KUB, 03/15/2021, 8:52. [facility], CR, XR KUB, 02/28/2021, 5:56. FINDINGS: Surgical changes and devices: Double pigtail ureteral catheter on the left. Several renal calculi are present within the lower 3rd collecting system of the left kidney. Bowel: Bowel gas pattern is normal. Soft tissues: No suspicious abdominal calcifications. Visualized solid organ contours appear normal in size. Bones: No suspicious bony lesions. IMPRESSION: Double pigtail ureteral catheter positioning normal. Renal calculi remain as was previously the case within the lower collecting system of the left kidney. Dictated by: Michael Salomon M.D. on 04/04/2021 at 15:12 Approved by: Michael Salomon M.D. on 04/04/2021 at 15:13
== END ==
PROVIDERS: PCP Internal Medicine; Referring Provider Specialist; Visit Provider Specialist
DX: N20.2 Calculus of kidney with calculus of ureter (principal)
CPT/HCPCS: 74018

== ENCOUNTER → 2021-04-06 08:01 | Outpatient (CLI) | payer MEDICARE, OTHER, SELFPAY | PROVIDERS: PCP Internal Medicine; Visit Provider Specialist | DX: R30.0 Dysuria (principal); N20.0 Calculus of kidney | CPT/HCPCS: 81002; 87086 ==

== ENCOUNTER → 2021-04-10 10:24 | Outpatient (CLI) | payer MEDICARE, OTHER, SELFPAY ==
--- NOTE | 2021-04-10 10:37 | DI.RAD.S_ITS ---
PROCEDURE: XR KUB INDICATIONS: Kidney stone TECHNIQUE: One view of the abdomen acquired. COMPARISON: [facility], CT, CT KIDNEY URETER BLADDER (KUB), 02/28/2021, 3:43. [facility], CR, XR KUB, 04/04/2021, 11:16. FINDINGS: Surgical changes and devices: Left ureteral stent has been placed. Bowel: Bowel gas pattern is normal. Soft tissues: No suspicious abdominal calcifications. Visualized solid organ contours appear normal in size. Cluster calcifications projected over the inferior pole of the left kidney, largest measuring 8 mm. Bones: No suspicious bony lesions. IMPRESSION: Placement of left ureteral stent and cluster calcifications projected over the inferior pole of the left kidney. Dictated by: Cipriano Gallo RRA Interpreted: Michael Salomon MD on 04/10/2021 at 10:46 Approved by: Michael Salomon M.D. on 04/10/2021 at 15:42
== END ==
PROVIDERS: PCP Internal Medicine; Referring Provider Specialist; Visit Provider Specialist
DX: N20.1 Calculus of ureter (principal); Z96.0 Presence of urogenital implants
CPT/HCPCS: 74018

== ENCOUNTER → 2021-04-20 07:53 | Outpatient (CLI) | payer MEDICARE, OTHER, SELFPAY ==
[2021-04-20 09:43] LABS: COVID19 -Nasal RAPID Negative (Negative)
== END ==
PROVIDERS: PCP Internal Medicine; Visit Provider Specialist
DX: Z20.822 Contact with and (suspected) exposure to COVID-19 (principal)
CPT/HCPCS: 87635; C9803

== ENCOUNTER 2021-04-21 06:40 | Day surgery (SDC) | payer MEDICARE, OTHER, SELFPAY ==
[2021-04-18 08:49] VITALS: BMI 27.9
[2021-04-21] VITALS (10 sets, daily range): BP systolic 118–145; BP diastolic 59–74; PULSE 50–60; RESP 12–16; TEMP 36.2–36.7; O2SAT 94–99; BMI 27.9
[2021-04-21] MEDS: LACTATED RINGERS 1,000 ML 42 ML IV ×2 (07:10→08:44)
--- NOTE | 2021-04-21 07:35 | PM.PREOP ---
Pre-operative Note Interval Note History & Physical reviewed/Exam performed by Physician: Yes Changes to H&P: No
[2021-04-21] MEDS: CEFAZOLIN 1 GM VIAL 2 GM IV (07:50)
--- NOTE | 2021-04-21 08:01 | SUR.OPER ---
Supine on eswl bed, head on pillow, arms padded and tucked at sides, legs uncrossed.
--- NOTE | 2021-04-21 09:15 | P.OP_ITS ---
Operative Date/Time/Diagnoses Date of procedure: 04/21/21 Time of procedure: 09:15 Pre-op diagnosis: 1. Left renal calculi 2. Retained left ureteral stent Post-op diagnosis: same Procedure & Clinicians Procedure: 1. Left extra corporal shockwave lithotripsy 2. Cystoscopy/removal left ureteral stent Same procedure as scheduled: Yes Indications: 1. Left renal calculi 2. Retained left ureteral stent Surgeon: Low Moncada Click Yes if Unassisted: Yes Anesthesia Type: General Operative Notes Findings: Index calculi were in expected position compared to preoperative imaging studies. Closure Type: not applicable Specimen(s): none sent Estimated Blood Loss (mL): 0 Procedure in detail: The patient was positioned in supine was administered general anesthesia. The above-described calculi were then localized in the X, Y, and Z planes. Lithotripsy was commenced at minimal power level for 200 shocks. A 2 minute pause was then conducted. Lithotripsy was then resumed and the power level gradually increased to maximum power level of 8.0. The calculi and related fragments were really localize numerous times throughout the case. A total of 2229 shocks were delivered. There was excellent radiographic evidence of stone comminution. The patient was then repositioned in semi lithotomy and the lower abdomen, genitalia, and groin were then prepped and draped in sterile fashion. A 22 Kinyarwanda panendoscope was then passed lower urinary tract. The scope was passed proximally and the left ureteral stent was visualized. Foreign body grasper was then used to engage the stent and it was removed without incident. The bladder was then drained completely and all instrumentation was removed. Patient was then repositioned in supine, was awakened, and transferred to recovery in stable condition. Complications: none Post-operative Condition: stable Disposition: PACU Plan for aftercare: Discharge home
[2021-04-21] MEDS: FUROSEMIDE 20 MG/2 ML VIAL IV (09:27)
--- NOTE | 2021-04-21 10:46 | SUR.PHASEII ---
voided 600 cc blood-tinged urine prior to discharge. urine strained - no stones or sediment noted
== END 2021-04-21 10:30 | disposition home or self-care (01) ==
PROVIDERS: PCP Internal Medicine; Referring Provider Specialist; Visit Provider Specialist
PROC: (CPT 50590; principal; 2021-04-21 07:45)
DX: N20.0 Calculus of kidney (principal); G47.33 Obstructive sleep apnea (adult) (pediatric); I25.10 Atherosclerotic heart disease of native coronary artery without angina pectoris
CPT/HCPCS: 50590; 82962; J0690; J1100; J1940; J2405; J2704; J3010

== ENCOUNTER → 2021-05-31 11:13 | Outpatient (CLI) | payer MEDICARE, OTHER, SELFPAY ==
--- NOTE | 2021-05-31 11:16 | DI.RAD.S_ITS ---
PROCEDURE: XR KUB INDICATIONS: Renal Calculi TECHNIQUE: One view of the abdomen acquired. COMPARISON: [facility], CR, XR KUB, 03/15/2021, 8:52. [facility], CR, XR ABDOMEN MIN 2V, 03/27/2021, 11:16. [facility] [place], CR, XR PELVIS WITH BILATERAL LATERAL HIPS, 04/19/2021, 8:24. [facility], CR, XR KUB, 02/28/2021, 5:56. [facility], CR, XR KUB, 04/04/2021, 11:16. [facility], CT, CT KIDNEY URETER BLADDER (KUB), 02/28/2021, 3:43. [facility], CR, XR KUB, 04/10/2021, 10:36. FINDINGS: Surgical changes and devices: Previously seen left sided double-J ureteral stent has been removed. Bowel: Bowel gas pattern is normal. Soft tissues: Faint, amorphous calcifications are noted in the left mid abdomen, projecting over the left renal shadow measure approximately 1.4 cm in area. No suspicious abdominal calcifications. Visualized solid organ contours appear normal in size. Bones: No suspicious bony lesions. Moderate degenerative changes of the left hip. Severe degenerative changes of the right hip. It is IMPRESSION: 1.4 cm area of faint soft tissue calcifications projecting over the left renal shadow compatible with nephrolithiasis. Otherwise, no acute abnormalities identified in the abdomen. Dictated by: Walker Gregory M.D. on 05/31/2021 at 15:24 Approved by: Walker Gregory M.D. on 05/31/2021 at 15:29
== END ==
PROVIDERS: PCP Internal Medicine; Referring Provider Specialist; Visit Provider Specialist
DX: N20.0 Calculus of kidney (principal); N20.1 Calculus of ureter; Z20.822 Contact with and (suspected) exposure to COVID-19
CPT/HCPCS: 74018; 87635; C9803

== ENCOUNTER → 2021-05-31 11:19 | Outpatient (CLI) | payer MEDICARE, OTHER, SELFPAY ==
[2021-05-31 13:17] LABS: COVID19 -Nasal RAPID Negative (Negative)
== END ==
PROVIDERS: PCP Internal Medicine; Visit Provider Physician Assistant
DX: Z20.822 Contact with and (suspected) exposure to COVID-19 (principal)
CPT/HCPCS: 87635; C9803

== ENCOUNTER 2021-06-02 07:07 | Observation (INO) | payer MEDICARE, OTHER, SELFPAY ==
[2021-05-30 09:51] VITALS: BMI 27.2
[2021-06-02] VITALS (11 sets, daily range): BP systolic 101–136; BP diastolic 59–85; PULSE 46–58; RESP 14–19; TEMP 35.6–36.7; O2SAT 94–100; BMI 27.2
--- NOTE | 2021-06-02 | DI.RAD.S_ITS ---
PROCEDURE: XR HIP W PEL IF DONE RT 2V INDICATIONS: TOTAL RIGHT HIP TECHNIQUE: AP pelvis and lateral view of the right hip acquired. COMPARISON: [facility], CHE, XR HIP W PEL IF DONE RT 2V, 06/02/2021, 12:05. FINDINGS: Bones: Patient is status post right hip arthroplasty, with hardware components in expected positions. The hip joint appears congruent. The visualized bony structures appear intact. Soft tissues: Overlying postoperative changes are noted. No suspicious soft tissue densities. IMPRESSION: Expected immediate postoperative appearance, status post total right hip arthroplasty. Dictated by: Parish Gonzalez M.D. on 06/02/2021 at 13:54 Approved by: Parish Gonzalez M.D. on 06/02/2021 at 13:54
--- NOTE | 2021-06-02 | PATH_ITS ---
[facility] Accession Number: [id number] . 01 Material submitted: . hip - RIGHT LATERAL HIP MASS . 01 Diagnosis: Right Lateral Hip, Excision: Mature fibroadipose tissue, consistent with lipoma. [facility] 06/05/2021 1301 Local . 01 Electronically signed: . Vince Fontanez MD, Dermatopathologist NPI- [id number] . 01 Gross description: . The specimen is received in formalin, labeled right lateral hip mass, and consists of a 9.0 x 6.5 x 3.5 cm, renee-yellow fragment of adipose tissue which is inked blue and sectioned to reveal renee-yellow, lobulated cut surfaces. [place] Coper sections are submitted in cassettes [id number]. ([id number]) /[facility] 06/03/2021 1635 Local . 01 Pathologist provided ICD-10: D17.9 . 01 CPT . 179740 Performed at: 01 [facility] [address] [place] [address] [address], [place], [place] [id number] MD Pollo Devi MD Phone: [phone]
--- NOTE | 2021-06-02 07:02 | DI.RAD.S_ITS ---
PROCEDURE: XR HIP W PEL IF DONE RT 2V INDICATIONS: hip replacement TECHNIQUE: 2 view(s) of the hip acquired. COMPARISON: [facility] [place], CR, XR PELVIS WITH BILATERAL LATERAL HIPS, 04/19/2021, 8:24. FINDINGS: Bones: Intraoperative images demonstrating placement of right hip arthroplasty with prosthetic components in expected positions. Soft tissues: Overlying postoperative changes are noted. No suspicious soft tissue densities. IMPRESSION: Intraoperative images demonstrating placement right hip arthroplasty with prosthetic components in expected positions. Dictated by: Cipriano Gallo RR Interpreted: Jovi Mcnair MD on 06/02/2021 at 12:39 Transcribed by: FRANK on 06/02/2021 at 12:40 Approved by: Ismael Mcnair M.D. on 06/04/2021 at 7:44
[2021-06-02] MEDS: LACTATED RINGERS 1,000 ML 42 ML IV ×2 (07:41→11:22)
[2021-06-02] MEDS: ACETAMINOPHEN 325 MG TABLET 975 MG PO (07:42)
[2021-06-02] MEDS: CELECOXIB 200 MG CAPSULE PO (07:56)
[2021-06-02] MEDS: VANCOMYCIN 1,000 MG/200 ML PIGGYBACK 200 MG IV (09:00)
--- NOTE | 2021-06-02 09:45 | PM.PREOP ---
Pre-operative Note COVID-19 COVID-19 status: Negative Interval Note History & Physical reviewed/Exam performed by Physician: Yes Changes to H&P: No
--- NOTE | 2021-06-02 09:45 | PM.OP.1 ---
Operative Date/Time/Diagnoses Date of procedure: 06/02/21 Time of procedure: 10:20 Pre-op diagnosis: right hip OA, right hip mass Post-op diagnosis: same Procedure & Clinicians Procedure: Right total hip arthroplasty posterior approach, excision right hip mass Same procedure as scheduled: Yes Indications: The patient has had progressively worsening right hip pain with radiographic changes consistent with arthritis. Non-operative management has failed and the patient has requested total hip replacement. The risks, benefits and alternatives to surgery were discussed with the patient prior to proceeding. Risks discussed included, but were not limited to, failure to relieve pain, leg length discrepancy, dislocation, stiffness, infection, nerve damage, deep venous thrombosis, pulmonary embolism, stroke, coma, heart attack, permanent paralysis and , as well as the potential need for eventual revision of the prosthetic. He also has a fairly large subcutaneous mass on his right hip which is somewhat anterior to his standard posterolateral incision Surgeon: Connie Pedraza Quality Systems Engineer: Onel Bellamy Anesthesia Type: General and Spinal Operative Notes Findings: Severe right hip osteoarthritis, good bone, adequate stability, large soft tissue mass most consistent a lipoma approximately 10cm. Closure Type: primary Specimen(s): none sent Prosthetic devices, grafts, tissues, transplants, or devices: Pedraza [employer] anthology A standard offset size 7, R3 52, neutral poly 36, oxinium -3 by 36, one 20 mm screw Applied: drain(s) Estimated Blood Loss (mL): 250 Blood products transfused: none Procedure in detail: The patient was seen in the pre-operative area, where the patient identified the right hip as the operative site and this was marked with my initials. The patient received pre-operative antibiotics and was taken to the operating room and placed on the operative table in the left lateral decubitus position after satisfactory anesthesia. A supervisor specialty plant out was performed. The right leg was prepared from the ankle to the iliac crest with ChloroPrep in the usual fashion and draped through sterile drapes. The hip was approached through an approximately 24 cm incision centered over the greater trochanter and curving gently posteriorly as it went proximally. This was carried sharply to the fascia randall, which was divided and retracted with a self retaining retractor. Attention was directed at removing the anterior soft tissue mass. Dissection was carried out through skin and subcutaneous tissues. There was a large soft tissue mass which was fatty in nature. Dissection was carefully done around the mass. It was removed in its entirety and sent for pathology. It was most consistent with a probable lipoma. The feeder vessel was found identified and coagulated with an Aquamantys. The overlying flap was carefully tacked down with interrupted Vicryl. Next the fibers of the gluteus were carefully split. Self-retaining retractor was placed. The trochanteric bursa was excised with care being taken to avoid the sciatic nerve, which was identified and protected throughout the case. The short external rotators were incised and the capsulomuscular flap was raised and tagged for later repair. The hip was dislocated, and a femoral neck osteotomy performed approximately 15 mm above the lesser trochanter. Retractors were placed around the femur. The canal was opened with a box cutting osteotome, followed by a T handled reamer and a lateralizing reamer. The chili pepper broach was then used, followed by sequential broaching until there was good stability of the broach in the femur. Retractors were placed to expose the acetabulum. The labrum and central soft tissues were removed. Reaming was performed initially going up in 2 mm increments, then 1 mm increments until good bite was obtained with an odd sized reamer. The cup 1 mm larger than the last reamer was then inserted using the appropriate anteversion guides. It was further stabilized with a single screw. A trial neutral liner was placed. The broach was placed in the canal. A trial head and neck were then placed and the hip relocated and checked for leg length and stability. An intraoperative film confirmed the component position and no evidence of fracture. The patient was stable in the position of sleep, of squatting, and could be put through a range of motion with 45 degrees internal rotation without dislocation. At 90 degrees flexion, internal rotation to 70 degrees was possible before dislocation. This was felt to be satisfactory and the appropriate components were opened, and the trials were removed. The acetabular liner was impacted into position. The final stem was then impacted into the prepared femoral canal. The hip was meticulously irrigated with normal saline. Finally the femoral head was impacted onto the stem. The acetabulum was cleared of all material and the hip relocated one final time. The capsulomuscular flap was then repaired to the greater trochanter though an awl hole using the tag sutures. The short external rotators were repaired with a nonabsorbable suture. A deep drain was placed and brought out anteriorly. The fascia randall was closed with Vicryl. The subcutaneous layer was closed with barbed sutures and SteriStrips. An Aquacel Ag dressing was applied and the patient was taken to recovery having tolerated the procedure well. Complications: none Post-operative Condition: stable Disposition: Acute Care Plan for aftercare: The patient will be maintained on a standard total hip replacement protocol with weight bearing as tolerated and posterior hip precautions. The patient will receive Aspirin and sequential compression devices for DVT prophylaxis. The patient will be discharged home when safe for the home environment.
[2021-06-02] MEDS: CEFAZOLIN 1 GM VIAL 2 GM IV ×2 (10:15→17:26)
[2021-06-02] MEDS: BUPIVACAINE LIPOSOME 266 MG/20 ML VIAL INJ (10:55)
[2021-06-02] MEDS: TRANEXAMIC ACID 1,000 MG VIAL 1000 MG TOP (10:55)
[2021-06-02] MEDS: BUPIVACAINE 0.25% (PF) VIAL 30 ML INJ (10:56)
[2021-06-02] MEDS: SODIUM CHLORIDE IRRIG SOLUTION 250 ML, EPINEPHrine 1 MG IRR (10:56)
--- NOTE | 2021-06-02 11:03 | SUR.OPER ---
Lateral on padded OR bed. Gel axillary roll. Arms secured on padded armboard with pillow supporting top arm. Padded hip positioner braces x4 - anterior and posterior chest and pelvis. Additional gel pad used anterior pelvis. Gel pad under bottom leg from knee to foot and secured with tape over sheet.
--- NOTE | 2021-06-02 14:11 | SUR.PHASEI ---
Stable PACU stay, Dr. Scott made aware of pt not being able to move L leg. No new orders, report called to FABIEN Sy. Pt transported up to room 205 on room air and left with Alie in stable condition. Bed low, locked and SCD's on, call christopher in reach, pt made aware to call for assist before getting OOB.
--- NOTE | 2021-06-02 15:12 | PT.IIE ---
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 RIGO on CPAP Osteoarthritis S/P extracorporeal shock wave therapy (04/21/21) Vertigo Physical Therapy Inpatient Evaluation/Re-Eval M1 PT/OT-IP Prior Functional Status Start: 06/02/21 16:28 Freq: NEEDED Status: Active Protocol: Document 06/02/21 15:12 AB (Rec: 06/02/21 16:45 AB [id number]) Medical Review Prior Functional Status Medical History Reviewed Yes Communication able to make needs known Mobility and Gait pt stated that he is independent with all mobilities and ambulation without AD Social History Household Members spouse Living Arrangements House Number of Floors (Floors) One Floor Number of Stairs To Enter/Railing? no steps to enter Home Environment Standard Height Toilet,Walk in Shower,Built-In Shower Seat Home Equipment Hand Held Shower,Grab Bars In Shower Additional Social History Comment pt has a standard walker and prefers to use a standard walker M2 PT-IP Current Condition Start: 06/02/21 16:28 Freq: NEEDED Status: Active Protocol: Document 06/02/21 15:12 AB (Rec: 06/02/21 16:45 AB [email or web address]) Physical Therapy Current Condition Current Condition Evaluation Date 06/02/21 Treatment Diagnosis s/p R KENNY posterior approach; difficulty in walking Onset Date 06/02/21 Precautions Posterior Hip Precautions No Hip Flexion > 90 degrees,No Hip Internal Rotation,No Hip Adduction Weight Bearing Status Weight Bearing Status Weight Bear as Tolerated Allowed Weight Bearing Amount (enter % RLE WBAT or #) (%) M3 PT-IP Subjective Start: 06/02/21 16:28 Freq: NEEDED Status: Active Protocol: Document 06/02/21 15:12 AB (Rec: 06/02/21 16:45 AB [id number]) Subjective Physical Therapy Visit Type Type Initial Evaluation Visit Start Time 15:12 Visit Stop Time 16:10 Total Visit Minutes 58 Number of PHOTOGRAPHIC EQUIPMENT INSPECTOR Visits 0 Physical Therapy Visit Comments Patient Comments agreeable to do PT Therapy Pain Assessment Pain When Pain Assessed At Rest Pain Present Pain Present Pain Reported Location Lower Back Intensity 7 Scale Used Numeric (0 - 10) Pain Management Techniques Re-positioning M4 PT-IP Mobility and Gait Start: 06/02/21 16:28 Freq: NEEDED Status: Active Protocol: Document 06/02/21 15:12 AB (Rec: 06/02/21 16:45 AB [email or web address]) PT-Bed Mobility Assessment Supine to Sit Supine to Sit Moderate Assistance,1 Person Assistance Sit to Supine Sit to Supine Maximum Assistance,1 Person Assistance PT-Transfer Assessment Sit to and From Stand Sit to and from Stand Maximum Assistance,1 Person Assistance,Use of Upper Extremities Equipment Transfer Assistive Device Gait Belt,Standard Walker Orthotic/Prosthetic Devices or Brace: No Comments Mobility Comments pt c/o low back pain and requested for repositioning. pt agreed to do PT. educated pt on posterior hip precautions. BP in supine: 122 /79. completed supine to sit L side of bed per pt's request , mod A and cues. pt was able to sit on EOB CGA. pt has a tendency to IR RLE and educated and cued for hip precautions. BP in sitting 116 /75. pt has issues with IV and nurse informed. IV has to be stopped pt sat on EOB SBA afer repositioning. BP checked again: 110/73. pt completed sit to stand and max cues for hip precuations max A and max cues. required max A for standing balance. instructed pt to side step towards HOB and completed ~ 2 ft using standard walker max A and max cues. pt max A for controlled descent to bed. requires increase time to respond to questions and instructions. max A for sit to supine. BP in supine: 137/78 . positioned pt in bed. call light and table placed within reach. Pt stated that it was too much for him just standing. caregiver training set up with spouse for tomorrow at 1000 am. Gait Assessment Gait Gait Assistance Required: Maximum Assistance Distance (Feet) 2 Able to Maintain Weight Bearing Status Yes During Gait Assistive Devices Assistive Device Gait Belt,Standard Walker Orthotic/Prosthetic Devices or Brace: No Gait Deviations General Gait Pattern Decreased Stride Length, Decreased Feet Clearance Factors Limiting Gait Function Factors Limiting Gait Function Decreased Activity Tolerance, Decreased Strength,Difficulty Following Directions,Pain,Poor Balance,Poor Safety Awareness Comments Gait Comments pls refer to mobility section for details PT-Balance Assessment Sitting Balance and Reactions Static Sitting Balance Ability Good Dynamic Sitting Balance Ability Fair Standing Balance and Reactions Static Standing Balance Ability Poor Dynamic Standing Balance Ability Poor Device Used FWW M5 PT-IP Objective Assessments Start: 06/02/21 16:28 Freq: NEEDED Status: Active Protocol: Document 06/02/21 15:12 AB (Rec: 06/02/21 16:45 AB [email or web address]) Orientation Orientation/Cognition Level of Alertness Alert Orientation Name,Place,Situation Language Function Ability No Deficits Noted Safety Awareness Decreased Safety Awareness Memory Description Short Term Impaired Gross Range of Motion Lower Extremity ROM Assessment Within Functional Limits Strength Lower Extremity Strength Assessment Right Impaired Hip 3+/5 Knee 3+/5 Sensation Assessment Sensation Gross Sensation WNL Muscle Tone Muscle Tone WNL Yes M6 PT-IP Treatment Start: 06/02/21 16:28 Freq: NEEDED Status: Active Protocol: Document 06/02/21 15:12 AB (Rec: 06/02/21 16:45 AB [email or web address]) Physical Therapy Treatment Education Education Provided Precautions,Weight Bearing Status,Post-Op Packet,Safety M7 PT-IP Assessment and Plan Start: 06/02/21 16:28 Freq: NEEDED Status: Active Protocol: Document 06/02/21 15:12 AB (Rec: 06/02/21 16:45 AB [email or web address]) PT Summary Assessment and Plan Potential Rehabilitation Potential Fair Status of Condition at Evaluation Evolving Summary Impairments Pain,ROM,Strength,Balance, Coordination,Sensation,Tone, Cognition,Bed Mobility, Transfers,Gait,Activity Tolerance Assessment Summary Pt s/p R KENNY posterior approach POD 0. pt unable to tolerate much activity today and required max A with mobility using standard walker . pt plans to go home and spouse to assist him at home. pt stated that he has outpt PT scheduled already. Caregiver training set up for tomorrow at 10 am. will continue to f/u pt's progress for safe d/c. Goals Bed Mobility Goal Standby Assistance Transfer Goal Standby Assistance,Front Wheeled Walker Gait Goal Standby Assistance,Front Wheel Walker Gait Distance 200 Days to Meet Goals 5 Frequency of Treatment Frequency Of Treatment Twice a Day Treatment Plan Physical Therapy Treatment Plan Bed Mobility Training,Transfer Training,Gait Training, Therapeutic Exercise,Balance Retraining,Post Op Education, Discharge Planning,Hot or Cold Pack,Neuromuscular Re-ed, Coordination Retraining,Manual Therapy Precautions Posterior Hip Precautions No Hip Flexion > 90 degrees,No Hip Internal Rotation,No Hip Adduction Other Precautions RLE WBAT Recommendations To Nursing Amount of Assist Needed PT/OT Assist Only Discharge Recommendations PT Discharge Recommendations Home with Assistance, Outpatient PT Transportation Needs at Discharge Private Vehicle
[2021-06-02] MEDS: IBUPROFEN 400 MG TABLET PO ×3 (15:18→21:12)
[2021-06-02] MEDS: ACETAMINOPHEN 325 MG TABLET 650 MG PO ×2 (15:18→21:12)
[2021-06-02] MEDS: LACTATED RINGERS 1,000 ML 125 ML IV (15:19)
--- NOTE | 2021-06-02 15:52 | PC.NURSE ---
Pt arrived from PACU at 1400 to room. VSS, afebrile on RA. A&Ox3, awake. Tolerating ice chips and water w/o n/v. Pt denies pain. Numbness and decreased movement to LLE from spinal. Aquacel to R hip C/D/I with hemovac, minimal output in place.
[2021-06-02] MEDS: OXYCODONE IR 5 MG TABLET PO (16:27)
[2021-06-02] MEDS: ONDANSETRON 4 MG ODT PO (18:14)
[2021-06-02] MEDS: ONDANSETRON 4 MG/2 ML INJ IV (18:46)
[2021-06-02] MEDS: DOCUSATE 100 MG CAPSULE PO (21:12)
[2021-06-02] MEDS: ASPIRIN EC 81 MG TABLET PO (21:12)
[2021-06-03] MEDS: hydrOXYzine pamoate 25 MG CAPSULE PO ×2 (00:33→03:51)
[2021-06-03] MEDS: IBUPROFEN 400 MG TABLET PO ×3 (00:33→08:35)
[2021-06-03 00:38] VITALS: BP 109/72; PULSE 53; RESP 12; TEMP 36.1; O2SAT 96
[2021-06-03] MEDS: LACTATED RINGERS 1,000 ML 125 ML IV (01:44)
[2021-06-03] MEDS: CEFAZOLIN 1 GM VIAL 2 GM IV (01:45)
[2021-06-03 04:03] VITALS: BP 121/75; PULSE 52; RESP 12; TEMP 36.1; O2SAT 98
[2021-06-03 06:24] LABS: Hemoglobin 12.1 g/dL (13.5-17.5)
--- NOTE | 2021-06-03 08:09 | PM.DS.1 ---
History of Present Illness History of Present Illness Date Patient Seen: 06/03/21 Time Patient Seen: 08:10 Chief complaint: OPB Narrative: Refer to previous HPI. Discharge Providers Provider Discharge Date: 06/03/21 Primary care physician: Tereso Ramos MD Consults: 06/02/21 07:02 Consult to Anesthesiology Routine Comment: Consulting Provider: Anesthesiologist Reason for consultation: Regional block for post operative pain control 06/02/21 07:34 Consult to Respiratory Therapy Evaluate & Treat Comment: Physician Instructions: Evaluate and treat 06/02/21 13:58 Consult to Discharge Planning Routine Comment: Consult to Physical Therapy Evaluate & Treat Comment: Physician Instructions: post op KENNY protocol Consult to Respiratory Therapy Evaluate & Treat Comment: Physician Instructions: Evaluate and treat Discharge provider: Onel Bellamy PA-C Summary Hospital Course Discharge Diagnosis: Right hip osteoarthritis Right hip mass Status post right posterior total hip arthroplasty Status post excision of right hip mass Hospital Course: Patient was admitted to the hospital following the above-listed procedures for the above-listed diagnosis. Following the procedure the patient has been convalescing appropriately in his pain has been managed with his current pain management regimen. Throughout his time in hospital the patient has denied fever, chills, nausea, chest pain, shortness of breath, or urinary retention. Aspirin 81 mg twice daily has been administered for DVT prophylaxis along with the assistance of sequential compression devices. Patient has successfully worked on ambulation with the assistance of a front wheeled walker with physical therapy. Aquacel dressing over the incision site has remained clean, dry, and intact following surgery. Status at Discharge Cognitive/behavioral status at discharge: oriented Functional status at discharge: uses cane/walker Overall status at discharge: patient is progressing back to baseline Exam Vital Signs (past 8 hours): - 06/03/21 00:38 06/03/21 04:03 Temperature 96.9 F L 96.9 F L Pulse Rate 53 L 52 L Respiratory Rate 12 12 Blood Pressure 109/72 121/75 Pulse Oximetry 96 98 Oxygen Delivery Method Room Air,BiPAP Oxygen Flow Rate 0 Narrative Exam Narrative: 66-year-old male postop day 1 status post right posterior total hip arthroplasty and excision of right hip mass. Patient is resting comfortably in bed, is in no acute distress, and is alert and oriented x3. Skin is warm dry, and the skin surrounding the incision site is free of erythema, warmth, induration, or discharge. Aquacel dressing over the incision site is clean, dry, and intact. Tenderness to palpation appreciated over the anterior medial aspect of the proximal right thigh. Good sensation appreciated throughout the bilateral lower extremities to light touch. Gross motor function intact throughout the bilateral lower extremities. Calves are soft and nontender, negative Homans sign. DP pulses palpated bilaterally and are even. 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 Plan of Treatment: Patient is to continue physical therapy in the outpatient setting following discharge from the hospital. First postoperative visit in clinic is scheduled for 2 weeks following discharge. Aquacel dressing over the incision site is to remain clean, dry, and intact for 2 weeks. Contact clinic if the dressing becomes damaged or soiled. Current pain management regimen is to be continued as it has adequately controlled the patient's pain level. Aspirin 81 mg twice daily is to be continued for 6 weeks for DVT prophylaxis. Patient is to remain weight-bearing as tolerated with the assistance of a front wheeled walker. Patient is to contact clinic with any concerns or questions. Any signs of increased redness, swelling, warmth, pain, or discharge from around the incision site should be reported to the clinic. Discharge Plan Discharge Plan Patient Disposition: Home Provider Discharge Comment: Patient cleared for discharge pending PT clearance. Discharge orders & Medications Discharge Orders: Discharge (Order); Ordered 06/03/21 Ordered By: Onel Bellamy Prescriptions: New acetaminophen 325 mg Tablet 650 mg PO TID Qty: 90 RF: 0 aspirin 81 mg Tablet,Delayed Release (Dr/Ec) 81 mg PO BID Qty: 90 RF: 0 ibuprofen 400 mg Tablet 400 mg PO Q4HR Qty: 90 RF: 0 oxycodone 5 mg Tablet 5 mg PO Q3HR PRN (Reason: Pain, Moderate (4-6)) Qty: 60 RF: 0 Continued omega-3 fatty acids 1,000 mg Capsule 1,000 mg PO DAILY RF: 0 aspirin 81 mg Tablet,Chewable 81 mg PO DAILY RF: 0 multivitamin Capsule 1 cap PO DAILY RF: 0 coenzyme Q10 [Co Q-10] 100 mg Capsule 100 mg PO DAILY RF: 0 loratadine 10 mg Capsule 10 mg PO DAILY RF: 0 vitamin K2 40 mcg Tablet 100 mcg PO DAILY RF: 0 magnesium gluconate 500 mg Tablet 500 mg PO DAILY RF: 0 testosterone ointment 1 applic topical DAILY RF: 0 Follow up/Referrals: Tereso Ramos MD [Primary Care Provider] - Diet/Activity/Treatments Diet: Diet as Tolerated and Regular Activity: Weight-bearing as tolerated with the assistance of a front wheeled walker. Cold/Heat Therapy: Apply ice as needed for pain. Skin/Wound/Dressing Care Report to your healthcare provider any signs of infection, such as:: chills, fever, night sweats, unusual drainage and unusual redness Dressing: Aquacel dressing over the incision site is to remain clean, dry, and intact for 2 weeks. Contact clinic if the dressing becomes damaged or soiled. Other wound treatment: Avoid placing topical ointments over the incision site or soaking the incision site until completely healed. Visit Report/Discharge Packet Instructions: DI for Hip Replacement Stand Alone Forms: Surgery Discharge Discharge Data Primary Care Provider: Tereso Ramos Attending Provider: Connie Pedraza Current Medications Current Medications Medications: Home Medications aspirin 81 mg chewable tablet 81 mg PO DAILY 10/07/18 [History Confirmed 06/02/21] coenzyme Q10 100 mg capsule (Co Q-10) 100 mg PO DAILY 10/07/18 [History Confirmed 06/02/21] loratadine 10 mg capsule 10 mg PO DAILY 10/07/18 [History Confirmed 06/02/21] multivitamin 1 cap PO DAILY 10/07/18 [History Confirmed 06/02/21] omega-3 fatty acids 1,000 mg capsule 1,000 mg PO DAILY 10/07/18 [History Confirmed 06/02/21] vitamin K2 40 mcg tablet 100 mcg PO DAILY 10/07/18 [History Confirmed 06/02/21] magnesium gluconate 500 mg tablet 500 mg PO DAILY 05/30/21 [History Confirmed 06/02/21] testosterone ointment 1 applic TOPICAL DAILY 06/01/21 [History Confirmed 06/02/21] acetaminophen 325 mg tablet 650 mg PO TID #90 tab 06/03/21 [Rx] aspirin 81 mg tablet,delayed release 81 mg PO BID #90 tab 06/03/21 [Rx] ibuprofen 400 mg tablet 400 mg PO Q4HR #90 tab 06/03/21 [Rx] oxycodone 5 mg tablet 5 mg PO Q3HR PRN #60 tab 06/03/21 [Rx] Visit Medications (administered) Generic Name Dose Route Start Last Admin Trade Name Joseq PRN Reason Stop Dose Admin Acetaminophen 650 mg 06/02/21 15:00 06/02/21 21:12 Acetaminophen 325 Mg Tablet PO 650 mg TID DESTINEY Administration Aspirin 81 mg 06/02/21 21:00 06/02/21 21:12 Aspirin Ec 81 Mg Tablet PO 81 mg BID DESTINEY Administration Docusate Sodium 100 mg 06/02/21 21:00 06/02/21 21:12 Docusate 100 Mg Capsule PO 100 mg BID DESTINEY Administration Hydroxyzine Pamoate 25 mg 06/03/21 00:02 06/03/21 03:51 Hydroxyzine Pamoate 25 Mg Capsule PO 25 mg Q4HR PRN Administration Nausea Lactated Ringer's 1,000 mls @ 125 mls/hr 06/02/21 13:58 06/03/21 01:44 Lactated Ringers IV 125 mls/hr CONT DESTINEY Administration Ibuprofen 400 mg 06/02/21 13:58 06/03/21 03:51 Ibuprofen 400 Mg Tablet PO 400 mg Q4HR DESTINEY Administration Ondansetron HCl 4 mg 06/02/21 13:58 06/02/21 18:46 Ondansetron 4 Mg/2 Ml Inj IV 4 mg Q4HR PRN Administration Nausea And Vomiting Ondansetron HCl 4 mg 06/02/21 13:58 06/02/21 18:14 Ondansetron 4 Mg Odt PO 4 mg Q4HR PRN Administration Nausea Oxycodone HCl 5 mg 06/02/21 13:58 06/02/21 16:27 Oxycodone Ir 5 Mg Tablet PO 5 mg Q3HR PRN Administration Pain, Moderate (4-6)
[2021-06-03 08:14] VITALS: BP 121/75; PULSE 64; RESP 14; TEMP 36.2; O2SAT 98
[2021-06-03] MEDS: LORATADINE 10 MG TABLET PO (08:35)
[2021-06-03] MEDS: FISH OIL 1,000 MG CAPSULE 1000 MG PO (08:35)
[2021-06-03] MEDS: ASPIRIN EC 81 MG TABLET PO (08:35)
[2021-06-03] MEDS: DOCUSATE 100 MG CAPSULE PO (08:35)
[2021-06-03] MEDS: MULTIVITAMIN 1 TABLET 1 TAB PO (08:35)
[2021-06-03] MEDS: ACETAMINOPHEN 325 MG TABLET 650 MG PO (08:37)
--- NOTE | 2021-06-03 10:16 | CM.DANOTE ---
DCP: Case received, EMR reviewed and met with patient. Introduced self and role. Was able to obtain information from patient regarding his baseline activity status prior to his surgery. DCP assessment completed with information currently available. Patient is a 66 year old male who admitted yesterday morning to the care of the orthopedic team. PCP: Dr. Ramos. Payer: confirmed: Medicare/[employer]. Patient came to the hospital via private vehicle for a surgical procedure. He had right total hip arthroplasty. Patient has history of osteoarthritis of his hip. Met with patient in his room. He worked with P.T. yesterday, and will be working with them again today. He is independent at his baseline, walks his dogs, does use a walking stick upon occasion. He resides in the [facility] with his spouse, Jasmyne. P: Patient has discharge orders today. He will need to work with the therapy team again, for he was max assist with P.T. yesterday. Augusta Long RN/Sr. Media Manager Discharge Planning/Care Management Advanced directive, confirm from FAMILY Start: 06/02/21 14:56 Freq: Q24H Status: Active Protocol: Document 06/02/21 16:29 AKP (Rec: 06/02/21 16:32 AK [id number]) Advance Directive, confirm on record Time 16:29 Person contacted to bring in. Copy received No Advanced directive available on record No CM Discharge Assessment Start: 06/03/21 10:14 Freq: Status: Active Protocol: Document 06/03/21 10:14 (Rec: 06/03/21 10:15 [id number]) Discharge Planning Assessment Assigned Airbrush Painter Augusta Long RN/Sr. Media Manager Advance Directives? Yes Advance Directives on File Yes History Provided By Patient,Medical Record Prior Living Arrangements House Household Members spouse Type of transporation used prior to Drives own vehicle admit Independent with ADL's Yes Is patient alert and oriented? Yes Caregiver for Another No DME Already Rented / Owned Other Comment Patient uses walking sticks for long walks Patient/Family Preference OP PT Therapy Barriers to Discharge No Discharge Plan Home Transportation Arrangement Spouse Referrals Initiated None needed Review Status In Process Next Review Type Continued Stay Review Pre-Anesthesia Assessment Start: 05/30/21 09:51 Freq: Status: Active Protocol: Document 05/30/21 09:51 CAB (Rec: 05/30/21 11:41 [facility] [id number]) Pre-Anesthesia Assessment Preferred Name Jet Patient Information Reviewed Via Phone Assessment Assessment Completed With Patient Comment Labs done per pt, not here, Outside EKG scanned, COVID screen @ [facility] 05/31/21 Primary Care Provider Tereso Ramos Seen Specialist in Last 12 Months Yes Specialist Seen Orthopedist,Urologist Primary Language Malay Preferred Language Malay Radio Electronics Technician Required No Height 5 ft 10 in Weight 190 lb Body Mass Index (BMI) 27.2 Hearing Ability Normal Visual Assist Magnifying Glass Dentition Type Teeth, Natural Present Barriers to Learning None Hx Anesthesia Reactions No: RIGO, intermittent use of CPAP Additional comment Pt reluctant to bring CPAP, strongly advised to bring dos Hx Family Anesthesia Reaction No Hx Malignant Hyperthermia No Hx Blood Transfusions No Anesthesia Review Requested No [employer] House Counselor No alcohol intake former Smoking Status Never smoker Substance Use Type does not use Pain Present Pain Reported Musculoskeletal Symptoms Abnormal Gait,Difficulty Walking,Joint Pain History of Falling (Recent or History of No ) Patient is completely paralyzed or No completely immobile Mental Status Oriented to own ability Is patient on oxygen? No Does patient have SAUER/SOB No Hx Sleep Apnea Yes CPAP/BIPAP use prescribed used intermittently Will Bring CPAP/BIPAP DOS Yes Currently Taking a Beta Ce No Hx Chest Pain Yes: None since stent placed Hx SOB No Hx Syncope or Dizziness Yes: Hx of vertigo Anti-Coagulant Therapy Yes: 81mg ASA-pt advised by surgeon to continue through surgery Has a [employer] Has not seen cardiology since 2014 Cardiac Testing No Hx Pacemaker/ICD No Pacemaker Rep Required? No Comment Hx of cardiac stent x 2 Diet Type At Home Regular dysphagia No Bladder Pattern Nocturia Urinary Catheter Present No Hx Urinary Self Catheterization No Diabetes No Presence of External or Internal Medical Yes: Left ureteral stent, CPAP Devices , cardiac stent x 2 Have you had any close contact with No someone diagnosed with COVID-19? Marital Status Lives With spouse Prior Living Arrangements House Number of Floors (Floors) One Floor Support System Spouse Does the Patient Have Assistance After Yes Surgery Patient Discharge Plan Description Return Home Comment Pt advised overnight length of stay per surgeon Feels Safe in Current Environment Yes Been Physically Hurt or Threatened By a No Person in Current Environment Do you have thoughts of harming yourself None or others? Are you currently considering suicide? No Do you have a plan to hurt yourself or No Plan others? Do You Have Any Spiritual Beliefs That No May Affect Your HC Choices? Do You Have Any Cultural Practices That No May Affect Your HC Choices? Who Can We Speak to About Patient's Care Family, friends Identifying Code for Release of Patient Declines to issue Information Health Care Proxy/Next of Kin Jasmyne () Health Care Proxy Emergency Contact Name Jasmyne () Emergency Contact Advance Directives? Yes Power of Stereotyper Helper Name Jasmyne () Power of Stereotyper Helper PAC Instructions Bring CPAP/BIPAP,Durable medical equipment,Medications to take/avoid,Nasal antibiotic ,No ETOH/petroleum product on skin DOS,Post-op transportation,Sensory aids, Sturdy shoes/comfortable clothes,Do not bring valuables and remove jewelry
--- NOTE | 2021-06-03 10:30 | PT.IPTN ---
Current Diagnoses Bilateral primary osteoarthritis of hip (06/02/21) Pain in right hip (06/02/21) Localized swelling, mass and lump, right lower limb (06/02/21) Surgery Performed Operation Date: 06/02/21 09:15 Actual Procedures p Total Hip Arthroplasty & excision of tumor soft tissue thigh/knee(Right) - Connie Pedraza MD Physical Therapy Treatment Note M2 PT-IP Current Condition Start: 06/02/21 16:28 Freq: NEEDED Status: Active Protocol: Document 06/02/21 15:12 AB (Rec: 06/02/21 16:45 AB [id number]) Physical Therapy Current Condition Current Condition Evaluation Date 06/02/21 Treatment Diagnosis s/p R KENNY posterior approach; difficulty in walking Onset Date 06/02/21 Precautions Posterior Hip Precautions No Hip Flexion > 90 degrees,No Hip Internal Rotation,No Hip Adduction Weight Bearing Status Weight Bearing Status Weight Bear as Tolerated Allowed Weight Bearing Amount (enter % RLE WBAT or #) (%) M3 PT-IP Subjective Start: 06/02/21 16:28 Freq: NEEDED Status: Active Protocol: Document 06/03/21 09:55 SP (Rec: 06/03/21 12:29 SP [id number]) Subjective Physical Therapy Visit Type Type Treatment Note Visit Start Time 09:55 Visit Stop Time 10:30 Total Visit Minutes 35 Notes in room completed caregiver training and provided all physical needs throughout tx. Vitals taken during tx: 114/70 elevated supine in bed BP 114 / 70 HR 62bpm post gait using SW: BP 95/60, HR 68, nonsymptomatic throughout tx. Number of SR. STRATEGIC SOURCING MANAGER Visits 1 Physical Therapy Visit Comments Patient Comments agreeable to do PT Patient Goals Return home with to assist him. Therapy Pain Assessment Pain When Pain Assessed At Rest Pain Present Pain Present Denied Pain Location Right Hip Intensity 0 Scale Used at rest, very low stated with mobility Description With Movement Pain Behaviors Facial Grimacing Pain Management Techniques Re-positioning,Timing of Activity with Medications M4 PT-IP Mobility and Gait Start: 06/02/21 16:28 Freq: NEEDED Status: Active Protocol: Document 06/03/21 09:55 SP (Rec: 06/03/21 12:29 SP [id number]) PT-Bed Mobility Assessment Supine to Sit Supine to Sit Standby Assistance Scooting Scooting to Edge of Bed Standby Assistance PT-Transfer Assessment Sit to and From Stand Sit to and from Stand Standby Assistance,Contact Guard Assistance,1 Person Assistance,Use of Upper Extremities Equipment Transfer Assistive Device Gait Belt,Standard Walker Orthotic/Prosthetic Devices or Brace: No Transfers Transfer Destination Chair Transfer Technique pt ambulated using SW Transfer Ability Level of Assist Contact Guard Assistance,Use of Upper Extremities Comments Mobility Comments Pt elevated supine when arrived. Pt recalled 3/3 precautions. Reviewed post op ex: QS, GS, HS AROM approx 70 deg knee flexion, AP. Completed supine>sit and scoot to L EOB with HOB flat SBA using BUE self reposition RLE self. donned gait belt on pt post education for safety mobilizing. Sit>Stand CGA w/ cues for pushing from bed then transition SW. Pt ambulated further distance around room then into hallway approx 170 ft total CG> SBA occasional cuing for SW 4 points when advances for safety, initially step to then reciprocal step patterning 3 pt gait w/ SW, improved RLE toe off, R knee flexion, heel toe with decreased hip hike and amount BUE WB on SW needed to decrease UT recruitment, improved normalizing gait w/ small steps during turns to maintain no R hip IR precautions after initial cues and upright posture w/ provided good carryover cues when needed. Pt returned to chair when arrived back in room, good pivot front chair small step carryover, cued for proper hand placement reaching back prior to sitting for slow descent w/ good pt self RLE repostioned in front to maintain >90deg hip flexion . Noted decrease in BP, non symptomatic and provided education on safety checks and notified nursing. Pt is ok to return home with to assist him when medically stable. Gait Assessment Gait Gait Assistance Required: Standby Assistance,Contact Guard Assist Distance (Feet) 170 Able to Maintain Weight Bearing Status Yes During Gait Assistive Devices Assistive Device Gait Belt,Standard Walker Orthotic/Prosthetic Devices or Brace: No Gait Deviations General Gait Pattern Antalgic,Decreased Stride Length,Decreased Feet Clearance,Step-to Gait Factors Limiting Gait Function Factors Limiting Gait Function Decreased Activity Tolerance, Decreased Strength,Limited Range of Motion,Pain,Poor Safety Awareness Comments Gait Comments see mobility for details. Stair Climbing Assessment Comments Stair Climbing Comments Not need, no stairs at home to assess. PT-Balance Assessment Sitting Balance and Reactions Static Sitting Balance Ability Normal Dynamic Sitting Balance Ability Good Standing Balance and Reactions Static Standing Balance Ability Good Dynamic Standing Balance Ability Fair Device Used SW M5 PT-IP Objective Assessments Start: 06/02/21 16:28 Freq: NEEDED Status: Active Protocol: Document 06/02/21 15:12 AB (Rec: 06/02/21 16:45 AB [id number]) Orientation Orientation/Cognition Level of Alertness Alert Orientation Name,Place,Situation Language Function Ability No Deficits Noted Safety Awareness Decreased Safety Awareness Memory Description Short Term Impaired Gross Range of Motion Lower Extremity ROM Assessment Within Functional Limits Strength Lower Extremity Strength Assessment Right Impaired Hip 3+/5 Knee 3+/5 Sensation Assessment Sensation Gross Sensation WNL Muscle Tone Muscle Tone WNL Yes M6 PT-IP Treatment Start: 06/02/21 16:28 Freq: NEEDED Status: Active Protocol: Document 06/03/21 09:55 SP (Rec: 06/03/21 12:29 SP [id number]) Physical Therapy Treatment Exercises Exercises Ankle Pumps,Gluteal Sets,Quad Sets,Heel Slides Knee ROM Measurement 70 deg R knee flexion AROM Education Education Provided Precautions,Weight Bearing Status,Post-Op Packet,Safety M7 PT-IP Assessment and Plan Start: 06/02/21 16:28 Freq: NEEDED Status: Active Protocol: Document 06/03/21 09:55 SP (Rec: 06/03/21 12:29 SP [id number]) PT Summary Assessment and Plan Potential Rehabilitation Potential Fair Status of Condition at Evaluation Evolving Summary Impairments Pain,ROM,Strength,Balance, Coordination,Sensation,Tone, Cognition,Bed Mobility, Transfers,Gait,Activity Tolerance Progress Towards Goals Progressing Toward Goals,Slow Progress due to Activity Tolerance Assessment Summary Pt was able to complete all mobility SBA during bed mobility, CG> SBA using standard walker occasional cuing from good carryover for quality gait phases RLE, LE postioning during turns and posture. SR. STRATEGIC SOURCING MANAGER lowered SW 1 notch with noted decreased UT recruitment. Pt is ok to return home with to assist him when medically cleared. Pt is already set up with outpt therapy. Goals Bed Mobility Goal Standby Assistance Transfer Goal Standby Assistance,Front Wheeled Walker Gait Goal Standby Assistance,Front Wheel Walker Gait Distance 200 Days to Meet Goals 5 Frequency of Treatment Frequency Of Treatment Twice a Day Treatment Plan Physical Therapy Treatment Plan Bed Mobility Training,Transfer Training,Gait Training, Therapeutic Exercise,Balance Retraining,Post Op Education, Discharge Planning,Hot or Cold Pack,Neuromuscular Re-ed, Coordination Retraining,Manual Therapy Other Recommendations and Next Treatment LE exercises, gait further Focus distance. Precautions Posterior Hip Precautions No Hip Flexion > 90 degrees,No Hip Internal Rotation,No Hip Adduction Other Precautions RLE WBAT Recommendations To Nursing Amount of Assist Needed Standby Assistance,1 Person Assist Discharge Recommendations PT Discharge Recommendations Home with Assistance, Outpatient PT Transportation Needs at Discharge Private Vehicle
--- NOTE | 2021-06-03 13:07 | CM.DANOTE ---
Pt is A&Ox3. reports pain to R hip minimal. +CMS to Lower extremities, using FWW to ambulate. LS CTA. VSSS, afebrile on RA. PA at bedside clearing patient for discharge home this am. pending PT clearance. Pt tolerated PT well. Hemovac drain dc'd. Pt and verbalized understanding of discharge activity, medications, follow up care, and site care as well as s/sx of infection. At approximately 1105 RN escorted pt via w/ch to private vehicle with and all of his belongings including a CPAP machine.
== END 2021-06-03 11:20 | disposition home or self-care (01) ==
LOC: OR 07:07 → AC 14:37
PROVIDERS: Admitting Provider Orthopaedic Surgery; PCP Internal Medicine; Referring Provider Orthopaedic Surgery; Visit Provider Orthopaedic Surgery
PROC: 0SR90JZ Replacement of Right Hip Joint with Synthetic Substitute, Open Approach (ICD-10-PCS; CPT 27130; principal; 2021-06-02 09:15)
DX: M16.11 Unilateral primary osteoarthritis, right hip (principal); M25.551 Pain in right hip; I25.10 Atherosclerotic heart disease of native coronary artery without angina pectoris; G47.33 Obstructive sleep apnea (adult) (pediatric); Z95.5 Presence of coronary angioplasty implant and graft; Z85.6 Personal history of leukemia; D17.1 Benign lipomatous neoplasm of skin and subcutaneous tissue of trunk
CPT/HCPCS: 27130; 27339; 36415; 36592; 72170; 73502; 85014; 85018; 97116; 97162; 97530; C1776; G0378; A9270; C9290; J0171; J0690; J2250; J2405; J2704; J3010

== ENCOUNTER → 2021-08-22 10:45 | Outpatient (CLI) | payer MEDICARE, OTHER, SELFPAY ==
[2021-06-02 14:52] VITALS: BMI 27.2
--- NOTE | 2021-08-22 10:46 | DI.RAD.S_ITS ---
PROCEDURE: XR KUB INDICATIONS: Calculus of kidney TECHNIQUE: One view of the abdomen acquired. COMPARISON: [facility], CT, CT KIDNEY URETER BLADDER (KUB), 02/28/2021, 3:43. [facility], CR, XR PELVIS WITH LATERAL HIP RIGHT, 06/14/2021, 14:09. [facility], CR, XR KUB, 05/31/2021, 11:14. [facility], CR, XR KUB, 04/10/2021, 10:36. FINDINGS: Surgical changes and devices: None. Bowel: Prominent stool in the colon. Scattered small bowel and colonic gas. No dilated loops of bowel identified. Soft tissues: Left-sided calculi in the region of the left kidney are unchanged. This measures 0.7 cm. No suspicious abdominal calcifications. Visualized solid organ contours appear normal in size. Bones: No suspicious bony lesions. Right hip arthroplasty. IMPRESSION: 1. Left kidney stones appear unchanged in size and location. 2. Prominent stool in the colon. Dictated by: Gregorio Florez M.D. on 08/22/2021 at 11:55 Approved by: Gregorio Florez M.D. on 08/22/2021 at 11:59
== END ==
PROVIDERS: PCP Internal Medicine; Referring Provider Specialist; Visit Provider Specialist
DX: N20.0 Calculus of kidney (principal)
CPT/HCPCS: 74018

== ENCOUNTER 2024-07-16 04:59 | Emergency (ER) | payer MEDICARE, OTHER, SELFPAY ==
[2021-06-02 14:52] VITALS: BMI 27.2
[2024-07-16] VITALS (16 sets, daily range): BP systolic 107–136; BP diastolic 55–63; PULSE 46–64; RESP 9–26; TEMP 36.4; O2SAT 92–97; BMI 27.2
--- NOTE | 2024-07-16 05:18 | PC.NURSE ---
Pt is weak, able to transfer self from to [facility]. states that she found on all fours and sweaty.
--- NOTE | 2024-07-16 05:19 | EKG_ITS ---
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
--- NOTE | 2024-07-16 05:19 | ED.GENADULT ---
HPI - General Adult <Marcelino Chand DO - Last Filed: 07/16/24 17:56> General Chief complaint: Weakness Stated complaint: found on floor sweaty 112/42, nausaes Time Seen by Provider: 07/16/24 05:03 Source: patient Mode of arrival: Ambulatory History of Present Illness HPI narrative: 69-year-old male. History of coronary artery disease. Here for evaluation of a episode that occurred this morning. Patient states he got up to go to the bathroom. He did have a bowel movement. When he got out of the bowel movement he was very weak. His found him on his hands and knees. Was sweating. Patient denied chest pain or shortness of breath. No loss of bowel or bladder. Patient's took his blood pressure and it was 112/42. Was bradycardic. Also developed nausea. Patient's symptoms did not improve which is what prompted the visit to the emergency department today. Related Data Home Medications Medication Instructions Recorded Confirmed aspirin 81 mg chewable tablet 81 mg PO DAILY 10/07/18 08/24/21 coenzyme Q10 100 mg capsule (Co 100 mg PO DAILY 10/07/18 08/24/21 Q-10) multivitamin 1 cap PO DAILY 10/07/18 08/24/21 magnesium gluconate 500 mg tablet 500 mg PO DAILY 05/30/21 08/24/21 testosterone ointment 1 applic topical DAILY 06/01/21 08/24/21 Collagen PO DAILY 08/24/21 08/24/21 HMB PO BID 08/24/21 calcium carbonate 1,000 mg-vitamin 1 tab PO DAILY 08/24/21 08/24/21 D3 20 mcg (800 unit) tablet cetirizine 10 mg capsule (Wal-Zyr 10 mg PO DAILY 08/24/21 08/24/21 (cetirizine)) cholecalciferol (vitamin D3) 125 125 mcg PO DAILY 08/24/21 08/24/21 mcg (5,000 unit) capsule medium chain triglycerides [MCT PO DAILY 08/24/21 08/24/21 Oil] mineral supplement PO DAILY 08/24/21 omega-3 fatty acids 1,000 mg 1,000 mg PO BID 08/24/21 08/24/21 capsule vitamin K2 100 mcg capsule 100 mcg PO DAILY 08/24/21 08/24/21 zinc 50 mg tablet 50 mg PO DAILY 08/24/21 08/24/21 Allergies Allergy/AdvReac Type Severity Reaction Status Date / Time No Known Drug Allergies Allergy Verified 08/24/21 10:09 Review of Systems <Marcelino Chand DO - Last Filed: 07/16/24 17:56> Review of Systems ROS Unobtainable: All systems reviewed & are unremarkable except as noted in HPI and below Patient History <Marcelino Chand DO - Last Filed: 07/16/24 17:56> Medical History Elevated lymphocyte count Chronic leukemia (2008) Osteoarthritis Intraoperative complication HLD (hyperlipidemia) S/P extracorporeal shock wave therapy (04/21/21) Calculus of left kidney RIGO on CPAP 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 Hydroureteronephrosis (02/28/21) Vertigo Coronary artery disease Monoclonal B-cell lymphocytosis of undetermined significance Surgical History History of surgery (1997) Hx of heart artery stent Hx of lithotripsy (03/03/21) Hx of lithotripsy (03/27/21) Hx of tonsillectomy S/P LASIK surgery of both eyes (2004) Social History household members: spouse Smoking Status: Never smoker alcohol intake: former Smoking Status: Never smoker alcohol intake frequency: a few times a week Alcohol type: wine Substance Use Type: does not use Exam <Marcelino Chand DO - Last Filed: 07/16/24 17:56> Initial Vital Signs Initial Vital Signs: Vital Signs Temperature 97.6 F 07/16/24 05:03 Pulse Rate 60 07/16/24 05:03 Respiratory Rate 18 07/16/24 05:03 Blood Pressure 114/61 07/16/24 05:03 Pulse Oximetry 95 07/16/24 05:03 Oxygen Delivery Method Room Air 07/16/24 05:03 Const General: cooperative and No ill appearing HENMT Head: normal to inspection and normocephalic Resp Effort & Inspection: normal respiratory effort Auscultation: clear to auscultation bilaterally Cardio Rate: bradycardic Rhythm: regular rhythm Skin General: no rashes or lesions noted Neuro General: patient alert, patient awake, patient oriented x3 and moves all extremities Extrem General: normal to inspection <DO Juliette Joseph Last Filed: 07/16/24 18:25> Initial Vital Signs Initial Vital Signs: Vital Signs Temperature 97.6 F 07/16/24 05:03 Pulse Rate 60 07/16/24 05:03 Respiratory Rate 18 07/16/24 05:03 Blood Pressure 114/61 07/16/24 05:03 Pulse Oximetry 95 07/16/24 05:03 Oxygen Delivery Method Room Air 07/16/24 05:03 Course <DO Juliette Oliveros Last Filed: 07/16/24 17:56> Orders Ordered: ED Orders 07/16/24 09:35 Troponin & CK Cardiac Panel Stat 07/16/24 09:39 EKG-12 Lead Stat Discontinued Medications Ondansetron HCl (Ondansetron 4 Mg/2 Ml Inj) 4 mg IV NOW ONE Stop: 07/16/24 05:35 Last Admin: 07/16/24 05:38 Dose: 4 mg Documented By: LIZZY Vital Signs Vital signs: Vital Signs - 8 hr 07/16/24 10:30 07/16/24 10:30 07/16/24 10:48 Pulse Rate 64 62 Respiratory Rate 26 H 13 Blood Pressure 125/59 L Pulse Oximetry 94 95 07/16/24 10:48 Pulse Rate Respiratory Rate Blood Pressure 107/58 L Pulse Oximetry <DO Juliette Joseph Last Filed: 07/16/24 18:25> Orders Ordered: ED Orders 07/16/24 09:35 Troponin & CK Cardiac Panel Stat 07/16/24 09:39 EKG-12 Lead Stat Discontinued Medications Ondansetron HCl (Ondansetron 4 Mg/2 Ml Inj) 4 mg IV NOW ONE Stop: 07/16/24 05:35 Last Admin: 07/16/24 05:38 Dose: 4 mg Documented By: LIZZY Vital Signs Vital signs: Vital Signs - 8 hr 07/16/24 10:30 07/16/24 10:30 07/16/24 10:48 Pulse Rate 64 62 Respiratory Rate 26 H 13 Blood Pressure 125/59 L Pulse Oximetry 94 95 07/16/24 10:48 Pulse Rate Respiratory Rate Blood Pressure 107/58 L Pulse Oximetry Medical Decision Making <DO Juliette Oliveros Filed: 07/16/24 17:56> Lab Data Lab results reviewed: Yes I reviewed the patient's lab results. 07/16/24 05:20 07/16/24 05:20 Labs: Lab Results 07/16/24 07/16/24 07/16/24 Range/Units 05:20 07:26 09:35 WBC 10.8 (4.5-11.0) X10^3/uL RBC 4.68 (4.5-5.9) X10^6/uL Hgb 15.0 (13.5-17.5) g/dL Hct 43.9 (41-53) % MCV 93.9 (80-100) fL MCH 32.0 (26-34) PG MCHC 34.1 (30-36) % RDW 12.7 (11.6-14.8) % Plt Count 204 (150-400) X10^3/uL Neut % (Auto) 64.6 (50-75) % Lymph % (Auto) 25.7 (25-40) % [place] % (Auto) 6.5 (3-14) % Eos % (Auto) 2.7 (2-4) % Baso % (Auto) 0.5 (0-2) % Neut # (Auto) 7000 (5507-3345) /uL Lymph # (Auto) 2800 (0723-0725) /uL [place] # (Auto) 700 (0-900) /uL Eos # (Auto) 300 (0-450) /uL Baso # (Auto) 100 (0-100) /uL Sodium 137 (137-145) mmol/L Potassium 4.8 (3.4-5.1) mmol/L Chloride 107 (98-107) mmol/L Carbon Dioxide 25 (22-32) mmol/L BUN 41 H (9-20) mg/dL Creatinine 0.96 (0.66-1.25) mg/dL Estimated GFR > 60 (>60) mL/min BUN/Creatinine Ratio 42.7 H (6-22) Glucose 133 H (80-110) mg/dL Calcium 9.1 (8.4-10.2) mg/dL Total Bilirubin 0.9 (0.2-1.3) mg/dL AST 28 (17-59) IU/L ALT 21 (<50) IU/L Alkaline Phosphatase 58 (38-126) U/L Total Creatine Kinase 67 78 58 (55-170) U/L Troponin I < 0.012 0.045 H 0.012 (0.01-0.034) ng/mL Total Protein 6.3 (6.3-8.2) g/dL Albumin 4.1 (3.5-5.0) g/dL Globulin 2.2 (1.7-4.1) g/dL Albumin/Globulin Ratio 1.9 (1.0-2.8) Lipase 182 (23-300) U/L SARS-CoV-2 (PCR) Negative (Negative) Influenza A (RT-PCR) Flu a negative (NEGATIVE) Influenza B (RT-PCR) Flu b negative (NEGATIVE) RSV (PCR) Negative (Negative) Urine Dip Bedside Urine Glucose Negative Bedside Urine Bilirubin - Negative Bedside Urine Ketone +/- [address] [place] 1.025 Bedside Urine Occult Blood - Negative Bedside Urine pH 6.7 Bedside Urine Protein +/- 15 Bedside Urine Urobilinogen - Negative Bedside Urine Nitrite - Negative Bedside Urine Leukocytes - Negative Esterase Point of care testing: Urine Dip Bedside Urine Glucose Negative Bedside Urine Bilirubin - Negative Bedside Urine Ketone +/- [address] [place] 1.025 Bedside Urine Occult Blood - Negative Bedside Urine pH 6.7 Bedside Urine Protein +/- 15 Bedside Urine Urobilinogen - Negative Bedside Urine Nitrite - Negative Bedside Urine Leukocytes - Negative Esterase ECG Data Attestation: I personally reviewed and interpreted this ECG as follows: Interpretation: Sinus bradycardia Ventricular rate of 52 Normal axis Normal QRS Normal QTC No ST T wave changes MDM Narrative Medical decision making narrative: Patient is alert and oriented x3. Nonischemic EKG. Has had 1- troponin. Has a history of ACS. COVID/flu negative. No other source of infection found. Labs are unremarkable. Given his cardiac history will obtain a 2nd troponin. Patient states he was feeling better. Will try a trial of oral intake. Care turned over to day provider to follow-up on 2nd troponin and disposition. <Charissa Moran, - Last Filed: 07/16/24 18:25> Lab Data Labs: Lab Results 07/16/24 07/16/24 07/16/24 Range/Units 05:20 07:26 09:35 WBC 10.8 (4.5-11.0) X10^3/uL RBC 4.68 (4.5-5.9) X10^6/uL Hgb 15.0 (13.5-17.5) g/dL Hct 43.9 (41-53) % MCV 93.9 (80-100) fL MCH 32.0 (26-34) PG MCHC 34.1 (30-36) % RDW 12.7 (11.6-14.8) % Plt Count 204 (150-400) X10^3/uL Neut % (Auto) 64.6 (50-75) % Lymph % (Auto) 25.7 (25-40) % [place] % (Auto) 6.5 (3-14) % Eos % (Auto) 2.7 (2-4) % Baso % (Auto) 0.5 (0-2) % Neut # (Auto) 7000 (0574-0028) /uL Lymph # (Auto) 2800 (5831-3629) /uL [place] # (Auto) 700 (0-900) /uL Eos # (Auto) 300 (0-450) /uL Baso # (Auto) 100 (0-100) /uL Sodium 137 (137-145) mmol/L Potassium 4.8 (3.4-5.1) mmol/L Chloride 107 (98-107) mmol/L Carbon Dioxide 25 (22-32) mmol/L BUN 41 H (9-20) mg/dL Creatinine 0.96 (0.66-1.25) mg/dL Estimated GFR > 60 (>60) mL/min BUN/Creatinine Ratio 42.7 H (6-22) Glucose 133 H (80-110) mg/dL Calcium 9.1 (8.4-10.2) mg/dL Total Bilirubin 0.9 (0.2-1.3) mg/dL AST 28 (17-59) IU/L ALT 21 (<50) IU/L Alkaline Phosphatase 58 (38-126) U/L Total Creatine Kinase 67 78 58 (55-170) U/L Troponin I < 0.012 0.045 H 0.012 (0.01-0.034) ng/mL Total Protein 6.3 (6.3-8.2) g/dL Albumin 4.1 (3.5-5.0) g/dL Globulin 2.2 (1.7-4.1) g/dL Albumin/Globulin Ratio 1.9 (1.0-2.8) Lipase 182 (23-300) U/L SARS-CoV-2 (PCR) Negative (Negative) Influenza A (RT-PCR) Flu a negative (NEGATIVE) Influenza B (RT-PCR) Flu b negative (NEGATIVE) RSV (PCR) Negative (Negative) Urine Dip Bedside Urine Glucose Negative Bedside Urine Bilirubin - Negative Bedside Urine Ketone +/- [address] [place] 1.025 Bedside Urine Occult Blood - Negative Bedside Urine pH 6.7 Bedside Urine Protein +/- 15 Bedside Urine Urobilinogen - Negative Bedside Urine Nitrite - Negative Bedside Urine Leukocytes - Negative Esterase Point of care testing: Urine Dip Bedside Urine Glucose Negative Bedside Urine Bilirubin - Negative Bedside Urine Ketone +/- [address] [place] 1.025 Bedside Urine Occult Blood - Negative Bedside Urine pH 6.7 Bedside Urine Protein +/- 15 Bedside Urine Urobilinogen - Negative Bedside Urine Nitrite - Negative Bedside Urine Leukocytes - Negative Esterase MDM Narrative Medical decision making narrative: Patient is alert and oriented x3. Nonischemic EKG. Has had 1- troponin. Has a history of ACS. COVID/flu negative. No other source of infection found. Labs are unremarkable. Given his cardiac history will obtain a 2nd troponin. Patient states he was feeling better. Will try a trial of oral intake. Care turned over to day provider to follow-up on 2nd troponin and disposition. Dr. Moran-patient signed out to me by Dr. Casper I have seen evaluated patient myself. Patient has a history of coronary artery disease with stent on aspirin 81 mg daily presents today after a bowel movement with diaphoresis and low blood pressure in the bathroom. At no time did he experience any sort of chest pain or palpitations he has not passed out. Blood work has been reviewed overall reassuring his 1st troponin was undetectable 2nd troponin 0.045 at the 2 hour paulo Repeat EKGs has a normal sinus rhythm rate 76 without ischemia and no changes from prior Patient's abdomen remained soft nontender he overall appears well and nontoxic Discussion with patient and in regards to repeating a 3rd troponin. Which they are agreeable to. Patient is given water and magazines to read 3rd troponin is back down to be in undetectable. He has not had any sort of chest pain he has 2 normal EKGs he has not had any symptoms since. At this time I recommend he follow-up with his primary care physician and laborer rags Discharge Plan Departure Patient Disposition: Home Clinical Impression: Near syncope Instructions: DI for Orthostatic Hypotension Activity Restrictions/Additional Instructions: *You have been diagnosed with near fainting *What to do: At this time I do recommend that you see your laborer rags and get further testing. Initially your troponin was undetectable and went to indeterminate in his back to being undetectable. I do not think it is related to your heart today but I do still recommend you follow-up and have your heart fully evaluated Please increase fluid and diet as tolerated today *Continue to take medications as directed *Follow up with your primary care provider in 2-3 days or call [phone] *Return to ER if you should have any recurrent episodes, chest pain shortness of breath abdominal pain nausea vomiting [or] any new, worsening or concerning symptoms Prescriptions: No Action aspirin 81 mg Tablet,Chewable 81 mg PO DAILY multivitamin Capsule 1 cap PO DAILY coenzyme Q10 [Co Q-10] 100 mg Capsule 100 mg PO DAILY omega-3 fatty acids 1,000 mg capsule 1,000 mg PO BID magnesium gluconate 500 mg Tablet 500 mg PO DAILY testosterone ointment 1 applic topical DAILY vitamin K2 100 mcg capsule 100 mcg PO DAILY calcium carbonate-vitamin D3 1,000 mg-20 mcg (800 unit) tablet 1 tab PO DAILY zinc 50 mg tablet 50 mg PO DAILY Collagen PO DAILY cholecalciferol (vitamin D3) 125 mcg (5,000 unit) capsule 125 mcg PO DAILY mineral supplement PO DAILY medium chain triglycerides [MCT Oil] PO DAILY HMB PO BID Wal-Zyr (cetirizine) 10 mg capsule 10 mg PO DAILY Referrals: Tereso Ramos MD [Primary Care Provider] - Stand Alone Forms: Patient Portal/API/Survey
[2024-07-16 05:34] LABS: Add Manual Diff / Slide Review NO; Basophils Absolute Auto 100 /uL (0-100); Basophils Percent Auto 0.5 % (0-2); Eosinophils Absolute Auto 300 /uL (0-450); Eosinophils Percent Auto 2.7 % (2-4); Hematocrit 43.9 % (41-53); Lymphocytes Absolute Auto 2800 /uL (1100-4500); Lymphocytes Percent Auto 25.7 % (25-40); Mean Corpuscular HGB Conc 34.1 % (30-36); Mean Corpuscular Volume 93.9 fL (80-100); Monocytes Absolute Auto 700 /uL (0-900); Monocytes Percent Auto 6.5 % (3-14); Neutrophils Absolute Auto 7000 /uL (1500-7000); Neutrophils Percent Auto 64.6 % (50-75); Platelet Count 204 X10^3/uL (150-400); Red Blood Cell Count 4.68 X10^6/uL (4.5-5.9); Red Cell Distribution Width 12.7 % (11.6-14.8); White Blood Cell Count 10.8 X10^3/uL (4.5-11.0)
[2024-07-16] MEDS: ONDANSETRON 4 MG/2 ML INJ IV (05:38)
[2024-07-16 05:52] LABS: Alanine Aminotransferase 21 IU/L (<50); Albumin 4.1 g/dL (3.5-5.0); Albumin Globulin Ratio 1.9 (1.0-2.8); Alkaline Phosphatase 58 U/L (38-126); Aspartate Aminotransferase 28 IU/L (17-59); BUN Creatinine Ratio 42.7 (6-22); Bilirubin Total 0.9 mg/dL (0.2-1.3); Blood Urea Nitrogen 41 mg/dL (9-20); Calcium 9.1 mg/dL (8.4-10.2); Carbon Dioxide 25 mmol/L (22-32); Chloride 107 mmol/L (98-107); Creatine Kinase 67 U/L (55-170); Estimated Glomerular Filt Rate > 60 mL/min (>60); Globulin 2.2 g/dL (1.7-4.1); Glucose 133 mg/dL (80-110); HEMOLYSIS 18 (0-50); Lipase 182 U/L (23-300); Potassium 4.8 mmol/L (3.4-5.1); Sodium 137 mmol/L (137-145); Total Protein 6.3 g/dL (6.3-8.2)
[2024-07-16 06:03] LABS: Troponin I < 0.012 ng/mL (0.01-0.034)
[2024-07-16 06:11] LABS: Influenza A - CEPHEID Flu A NEGATIVE (NEGATIVE); Influenza B - CEPHEID Flu B NEGATIVE (NEGATIVE); Respiratory Syncytial Virus Negative (Negative)
[2024-07-16 06:13] LABS: COVID-19 CEPHEID 4-PLEX PCR Negative (Negative)
--- NOTE | 2024-07-16 07:00 | PC.NURSE ---
Pt ambulatory to [facility]. Reports that he is feeling better and that if he was feeling this good he wouldn't have come in to the ER.
[2024-07-16 07:47] LABS: Creatine Kinase 78 U/L (55-170)
[2024-07-16 08:00] LABS: Troponin I 0.045 ng/mL (0.01-0.034)
--- NOTE | 2024-07-16 08:22 | EKG_ITS ---
[address] [address] Test Date: 2024-07-16 Pat Name: Chapito Pressley Department: [facility] Room: Gender: Male [employer] P[employer]: RAYMUNDO : 1955 Requested By: Order Number: [id number] Reading MD: Alex Farrell MD Measurements Intervals [place] Rate: 57 P: 25 IN: 160 QRS: 25 QRSD: 86 T: 64 QT: 414 QTc: 402 Interpretive Statements Sinus bradycardia Electronically Signed On 07-16-2024 15:13:37 PST by Alex Farrell MD
--- NOTE | 2024-07-16 09:42 | EKG_ITS ---
[address] [address] Test Date: 2024-07-16 Pat Name: Chapito Pressley Department: [facility] Room: Gender: Male Microscopist: RAYMUNDO : 1955 Requested By: Order Number: [id number] Reading MD: Alex Farrell MD Measurements Intervals [place] Rate: 48 P: 10 OK: 160 QRS: 12 QRSD: 92 T: 47 QT: 440 QTc: 393 Interpretive Statements Sinus bradycardia Electronically Signed On 07-16-2024 15:13:41 PST by Alex Farrell MD
[2024-07-16 09:57] LABS: Creatine Kinase 58 U/L (55-170)
[2024-07-16 10:10] LABS: Troponin I 0.012 ng/mL (0.01-0.034)
== END 2024-07-16 10:59 | disposition home or self-care (01) ==
PROVIDERS: Emergency Medicine; Emergency Provider Emergency Medicine; PCP Internal Medicine
DX: R55 Syncope and collapse (principal); R11.0 Nausea; R00.1 Bradycardia, unspecified; Z11.52 Encounter for screening for COVID-19
CPT/HCPCS: 0241U; 36415; 80053; 81003; 82550; 83690; 84484; 85025; 93005; 93010; 96374; 99284; J2405

== ENCOUNTER → 2024-07-29 07:26 | Outpatient (CLI) | payer MEDICARE, OTHER, SELFPAY ==
[2021-06-02 14:52] VITALS: BMI 27.2
--- NOTE | 2024-07-29 18:03 | DI.NM.S_ITS ---
DATE OF SERVICE: 07/29/2024 EXERCISE TREADMILL STRESS TEST PROCEDURE: Exercise treadmill stress test without imaging. ORDERING PROVIDER: JESSICA Munoz. INDICATIONS: The patient is a 69-year-old male with a history of previous percutaneous revascularization and recent chest tightness with an episode of presumed vagal syncope. FINDINGS: 1. The patient was able to exercise for 8 minutes 23 seconds on a standard Ace protocol suggesting good exercise capacity with an MIMI of -16%, achieving 10.1 METs. 2. He had a normal heart rate and blood pressure response to exercise, achieving a maximum heart rate of 132 bpm (87% of his predicted maximum). 3. He developed 1/10 chest discomfort at peak exercise that resolved promptly in recovery, concerning for possible angina. 4. His resting ECG shows sinus rhythm with normal ST segments. With exercise, he develops 2 to 3 mm of flat to downsloping ST depression in the lateral leads that persist late into recovery, consistent with an ischemic response. He had occasional isolated PVCs but no complex ventricular ectopy. IMPRESSION: 1. Abnormal exercise treadmill study concerning for probable myocardial ischemia but without high-risk indicators. 2. Mild exertional angina, resolving promptly in recovery. He had occasional PVCs in recovery but no complex ventricular ectopy. 3. Cardiology consultation is recommended to further evaluate his cardiovascular ischemic heart disease. Chapito Pressley - RUIZ/larisa/ANAHI doc#: [id number]/job#: [id number] dd: 07/29/2024 16:56:00 dt: 07/29/2024 17:36:00 DICTATING MD/COPIES TO: Angel Brandt MD; Kristen Cope COPIES MNE: JOEL; ; Kristen Cope
== END ==
PROVIDERS: PCP Internal Medicine
DX: I20.89 Other forms of angina pectoris (principal); I49.3 Ventricular premature depolarization; R07.9 Chest pain, unspecified; R94.39 Abnormal result of other cardiovascular function study
CPT/HCPCS: 93017

== ENCOUNTER → 2024-09-16 09:42 | Outpatient (CLI) | payer MEDICARE, OTHER, SELFPAY ==
[2021-06-02 14:52] VITALS: BMI 27.2
--- NOTE | 2024-09-16 09:49 | DI.NM.S_ITS ---
PROCEDURE: NM MERLINE PERF SPECT R&S PHARM Rest and pharmacological stress myocardial perfusion SPECT with gated imaging and ejection fraction RADIOPHARMACEUTICAL: 11.3 mCi Tc-99m tetrafosmin IV at rest and 25.8 mCi Tc-99m tetrafosmin IV at peak effect of pharmacological stress. [id number] was performed. INDICATIONS: CAD TECHNIQUE: Radiopharmaceutical was injected at peak stress test, and also at rest. SPECT images were obtained. SPECT myocardial perfusion images were displayed in short axis, horizontal long axis, and vertical long axis views. Gated images were reviewed using [employer] software. COMPARISON: None. CARDIAC STRESS: A pharmacologic stress test was performed under the supervision of an attending staff, using an infusion of lexiscan 0.4mg IV X1. Hemodynamic data: There is normal blood pressure and heart rate response to pharmacologic stress. Symptoms: The patient denied anginal chest pain. EKG: No diagnostic changes of ischemia; rare PACs. FINDINGS: Raw data: There is good myocardial uptake of radiotracer. No significant motion artifacts. Czgm-rq-yulcr ratio is 0.22 (normal is less than 0.38 for tetrafosmin tracer). Left ventricle function: Gated images demonstrate normal left ventricular wall thickening. No segmental wall motion abnormalities. No transient ischemic dilation; TID is 1.03 (normal less than 1.3). Left ventricle resting end diastolic volume is 171mL. Left ventricle stress ejection fraction is 66%; normal range is above 45%. Myocardial perfusion: There is a mildly to moderately intense inferior and apical wall defect at rest that improves with stress and resolves with prone imaging, suggesting artifact. No ischemia and no infarction present. IMPRESSION: Low risk, normal pharm nuclear stress test from inducible ischemia standpoint. Enlarged left ventricle with normal function. 1) No perfusion evidence of ischemia or infarction. There is a mildly to moderately intense inferior and apical wall defect at rest that improves with stress and resolves with prone imaging, suggesting artifact. 2) Enlarged left ventricle (resting EDV 171cc) with normal wall motion and normal systolic function (EF post stress 66%). 3) No diagnostic ST changes with lexiscan. 4) No angina during the study. 5) Compared to the nuclear stress test done 08/22/2015, left ventricular end diastolic volume has increased from 123cc to 171cc on this study. Dictated by: Katarzyna Sutherland MD on 09/16/2024 at 16:36 Approved by: Katarzyna Sutherland MD on 09/16/2024 at 16:40
[2024-09-16 12:53] LABS: Cholesterol 174 mg/dL (140-199); HDL Cholesterol 93 mg/dL (40-60); LDL Cholesterol Calculated 71 mg/dL (<100); Triglycerides 51 mg/dL (35-150)
== END ==
LOC: NUCM 09:45
PROVIDERS: PCP Internal Medicine; Referring Provider Internal Medicine Cardiovascular Disease; Visit Provider Internal Medicine Cardiovascular Disease
DX: E78.2 Mixed hyperlipidemia (principal); I25.10 Atherosclerotic heart disease of native coronary artery without angina pectoris
CPT/HCPCS: 36415; 78452; 80061; 93017; A9502; J2785